=== PATIENT | female | born 1995 | race Caucasian/White ===

== ENCOUNTER 2018-03-05 07:43 | Day surgery (SDC) | payer OTHER, SELFPAY ==
[2018-02-24 15:43] VITALS: BMI 32.9
[2018-03-05] VITALS (7 sets, daily range): BP systolic 101–138; BP diastolic 63–86; PULSE 78–90; RESP 11–16; TEMP 36–36.5; O2SAT 93–96; BMI 32.9
--- NOTE | 2018-03-05 07:24 | PM.PREOP ---
Pre-operative Note Interval Note Pre-op Check: History & Physical Reviewed by Physician
[2018-03-05] MEDS: LACTATED RINGERS 1,000 ML 42 ML IV ×2 (08:41→10:57)
[2018-03-05] MEDS: SCOPOLAMINE 1 PATCH TOP (08:42)
--- NOTE | 2018-03-05 08:45 | SUR.PREOP ---
scope patch behind r ear. Negative test, lot #[id number] exp , start 808 end 811.
[2018-03-05] MEDS: CEFAZOLIN 2 GM/100 ML FROZ.PIGGY IV (09:07)
--- NOTE | 2018-03-05 09:41 | SUR.OPER ---
Lateral on padded OR bed, head on pillow, gel axillary roll in place, right leg bent with gel pad under knee to foot and secured with tape, left leg draped free. Upper arm supported by pillows and secured over bottom arm to padded arm board. Safety belt at hip, tape over blanket lower legs. Right lateral
[2018-03-05] MEDS: BUPIVACAINE 0.25% (PF) 30 ML VIAL INJ (10:24)
[2018-03-05] MEDS: fentaNYL 100 MCG/2 ML INJ 50 MCG IV (10:50)
--- NOTE | 2018-03-05 11:03 | P.OP_ITS ---
Operative Date/Time/Diagnoses - Date of procedure: 03/05/18 Time of procedure: 09:18 Pre-op diagnosis: Left ankle instability Post-op diagnosis: same Procedure & Clinicians Procedure: Left ankle open lateral ligament repair, Brostrom Same procedure as scheduled: Yes Indications: This is a 22-year-old female with long-standing left ankle instability. She has instability in her daily activities and difficulty getting dressed in the morning and walking on uneven surfaces. She has mild pain associated with this. There was a abnormal anterolateral drawer test. MRI did not show any talar osteochondral lesions. She did not have any signs of hyperlaxity. The risks, benefits, alternatives to surgery were discussed. The risks of surgery are pain, bleeding, infection, recurrent instability, damage to nearby structures, numbness, neuroma, and lack of symptom relief. The goals of surgery are to stabilize the ankle to allow her to do normal daily activities and her desired sports. She signed a written consent form. Surgeon: Tj Velasquez Click Yes if Unassisted: Yes Anesthesia Type: General and Local Operative Notes Findings: Examination under anesthesia showed increased laxity to talar tilt and anterior drawer test of the ankle. Range of motion was 15? of dorsiflexion to 60? of plantar flexion. Subtalar motion is supple. Intraoperative findings showed adequate ATFL and CFL tissue for repair. There are no talar dome lesions. Closure Type: primary Specimen(s): none sent Implants & Drains: 1.8 mm suture tack by Arthrex x2 Estimated Blood Loss (mL): 5 Blood products transfused: none Tourniquet time (min): 46 Procedure in detail: Patient was met in the preoperative hold area on the day of the procedure in the operative extremity was signed. Consent was verified. She desired to proceed. She was brought to the operating room and surrendered to anesthesia. Once general anesthesia been obtained she was placed in the lateral position with the left side up. An axillary roll was placed and all bony prominences were well padded. She was held with a jacob bag. She was then prepped and draped in the standard sterile fashion. A surgical time-out was held to confirm the patient procedure identity allergies antibiotics images already agreed to proceed. An Esmarch was used to exsanguinate the limb and the tourniquet was elevated to 250 mm of mercury. A 4 cm incision was made over the lateral malleolus extending towards the 4th metatarsal. Sharp dissection was carried down to the retinaculum electrocautery was used to obtain hemostasis. Full-thickness flaps were created at the level of the retinaculum anteriorly and posteriorly. We land was used for retraction. I palpated the soft spot between the ATFL and the ATFL and made a small full-thickness capsular incision 2 mm off of the fibula. I then placed a curved hemostat into the joint and continued the capsulotomy around down to the peroneal tendons being careful to protect them. No talar dome lesions were seen. A rongeur was used to remove hypertrophied Nicolaus's ligament. Once satisfied with this I used a Elder rake to pull on the cuff of tissue attached to the fibula and sharply dissected off 4 mm up. I then used a rongeur to denude the anterior lateral and the distal portions of the fibula where the tissue was going to be reduced. I then drilled and placed a suture tack at the ATFL insertion on the fibula and at the CFL insertion. I then passed 2 limbs of the anterior suture through the remnant the ATFL and capsular tissues reduced them onto the fibula nicely. I repeated this in the anterior border of the of the CFL ensuring to not capture the peroneal tendons. I then irrigated the joint copiously. I then moved the bump to the forefoot which kimberlee the ankle and tied the capsular tissue down to the bone. It was found to reduce nicely and be firmly fixed. I then placed the sutures up through the remnant tissue on the fibula and then back down through it around the retinaculum and reduced the retinaculum to the fibula and tied tightly. Satisfied with this stability obtained performed an anterior drawer and talar tilt and found to be stable. Range of motion of the ankle remained normal. I then cut the sutures. Layered closure was performed with 2 0 Vicryl in the fascial layer. 120 Vicryl in the dermis. And vertical mattress nylon stitches. 10 cc of 0.25% Marcaine plain were instilled about the wound. A sterile dressing was applied and a splint was placed with the ankle everted. She was awakened and transferred to recovery room. Complications: none Condition: stable Disposition: same day surgery Plan for aftercare: Splint on for 2 weeks. Transition to a cast for 2 additional weeks. Transition to Cam walker boot with weight-bearing as tolerated after that point. Advance activities after the 6 week visit.
[2018-03-05] MEDS: OXYCODONE/ACETAMINOPHEN 5/325 TABLET 1 TAB PO (11:06)
== END 2018-03-05 11:30 | disposition home or self-care (01) ==
PROVIDERS: Family Provider Family Medicine; PCP Family Medicine; Visit Provider Orthopaedic Surgery
PROC: (CPT 27698; principal; 2018-03-05 09:15)
DX: M25.372 Other instability, left ankle (principal)
CPT/HCPCS: 27698; J0690; J1100; J2405; J2704; J3010

== ENCOUNTER 2018-04-09 23:43 | Emergency (ER) | payer OTHER, SELFPAY ==
[2018-04-10 00:08] VITALS: BP 129/83; PULSE 80; RESP 17; TEMP 36.3; O2SAT 100; BMI 33.2
--- NOTE | 2018-04-10 02:01 | DI.US.S_ITS ---
PROCEDURE: US PELVIC COMPLETE INDICATIONS: severe RLQ pain, hx ovarian cyst/endometriosis/vaginal disch TECHNIQUE: Real-time scanning was performed of the pelvic organs, with image documentation. Additional endovaginal scanning was necessary due to incomplete visualization of the adnexal and endometrial structures by transabdominal scanning. COMPARISON: [facility], , PELVIC COMPLETE, 10/14/2016, 2:45. FINDINGS: Preliminary report by material handler 2nd shift radiology Transabdominal scanning: Limited scanning through the kidneys shows no hydronephrosis. The kidneys measure 11.6 CM right and 11.5 CM left. Small amount of free fluid around the root right ovary and in the cul-de-sac. Endovaginal scanning: Uterus: Uterus is normal in size at 3.2 x 4.2 x 4.6 cm. The endometrium measures 7 mm in combined thickness. Ovaries: The right ovary measures 35 x 36 x 36 mm and shows normal blood flow with resistive index of 0.69. There is a complex echogenic cyst in the right ovary measuring 15 x 14 x 14 mm, probable hemorrhagic cyst. The left ovary appears normal measuring 22 x 27 x 31 mm. Bilateral ovarian follicular activity. IMPRESSION: 1. Normal uterus and left ovary. 2. Small 1.4 cm hemorrhagic cyst right ovary. No evidence of ovarian torsion. Findings are concordant with the preliminary report. Dictated by: Melvin Veloz M.D. on 04/10/2018 at 7:53 Approved by: Melvin Veloz M.D. on 04/10/2018 at 7:57
[2018-04-10] MEDS: ONDANSETRON 4 MG/2 ML INJ IV (02:36)
[2018-04-10] MEDS: HYDROMORPHONE 1 MG INJ IV (02:36)
[2018-04-10] MEDS: SODIUM CHLORIDE 0.9% 1,000 ML 1000 ML IV (02:36)
--- NOTE | 2018-04-10 02:39 | ED_ITS ---
HPI - Female Genitourinary General Chief complaint: Urogenital-Female Stated complaint: SHARP PAIN SHOOTING DOWN LEGS,NAUSEA AND VOMITING Time Seen by Provider: 04/10/18 00:00 Source: patient and family Mode of arrival: ambulatory Limitations: no limitations History of Present Illness HPI Narrative: 23-year-old female with longstanding history of ovarian trouble and endometriosis presents the most severe pelvic pain she has ever had in her right lower quadrant. She admits to nausea vomiting and subjective fever. She denies vaginal bleeding but has had some discharge. She states it is worse when she moves and improves with rest. She was seen and evaluated yesterday at a neighboring facility and was discharged after a thorough history and physical exam. No labs or imaging were performed. Patient is sexually active and states that she is careful. MD Complaint: pelvic pain Onset (ago): day(s) Location: suprapubic and RLQ Severity: severe Quality: Aching and Burning Duration: constant Exacerbating factors: movement Patient : No Associated symptoms: vaginal discharge Related Data Home Medications Medication Instructions Recorded Confirmed meloxicam [Mobic] 7.5 mg PO AMCC #0 10/15/16 03/05/18 [BCP] 1 tab PO Q DAY #0 10/23/16 aspirin 325 mg PO DAILY 02/24/18 02/24/18 [id number] 2 tab PO Q4-6H PRN 03/05/18 03/05/18 [Excedrin Extra Strength] Previous Rx's Medication Instructions Recorded ondansetron [Zofran ODT] 4 mg SUBLINGUAL Q6HP PRN #10 odt 08/07/16 ibuprofen 600 mg PO Q6HP PRN #60 tab 10/24/16 oxycodone-acetaminophen [Percocet] 1 tab PO Q4HP PRN #15 tab 10/24/16 ketorolac 10 mg PO Q6H PRN #14 tab 04/10/18 Allergies Allergy/AdvReac Type Severity Reaction Status Date / Time latex [LATEX] Allergy Mild RASH, Verified 03/05/18 08:07 ITCHING Review of Systems Review of Systems All systems reviewed & are unremarkable except as noted in HPI and below Constitutional Denies chills, Denies fever(s), Denies lethargy and Denies weakness Eyes Denies change in vision, Denies eye discharge, Denies irritation and Denies loss of vision ENT Ears, Nose, Mouth, and Throat: Denies change in voice, Denies neck pain and Denies sore throat Cardiovascular Denies chest pain, Denies irregular heart rhythm, Denies lightheadedness, Denies palpitations, Denies dyspnea, Denies dyspnea on exertion and Denies orthopnea Respiratory Denies cough, Denies dyspnea, Denies dyspnea on exertion and Denies wheezing Gastrointestinal Gastrointestinal: Reports abdominal pain, Denies change in bowel habits, Denies diarrhea, Reports nausea and Reports vomiting Genitourinary Denies hematuria, Reports pelvic pain, Denies flank pain, Denies urinary incontinence and Denies urinary urgency Musculoskeletal Denies neck pain Integumentary/Breasts Denies pruritus, Denies erythema, Denies rash and Denies wounds Neurologic Denies confusion, Denies loss of vision and Denies weakness Psychiatric Denies anxiety, Denies confusion, Denies depression, Denies homicidal ideation and Denies suicidal ideation Endocrine Denies palpitations Hematologic/Lymphatic Denies easy bruising Allergic/Immunologic Denies wheezing PFSH Medical History Ankle pain (Acute) Anxiety (Acute) Constipation (Acute) Depression (Acute) Deviated septum (Acute) History of headache (Acute) Knee pain (Acute) Left ankle instability (Acute) Surgical History H/O laparoscopy (Acute) History of mandibular surgery (Acute) History of ovarian cystectomy (Acute) S/P left knee arthroscopy (Acute) S/P right knee arthroscopy (Acute) Social History household members: spouse Smoking Status: Current every day smoker alcohol intake: current Exam Initial Vital Signs Initial Vital Signs: Vital Signs Temperature 97.4 F L 04/10/18 00:08 Pulse Rate 80 04/10/18 00:08 Respiratory Rate 17 04/10/18 00:08 Blood Pressure 129/83 H 04/10/18 00:08 Pulse Oximetry 100 04/10/18 00:08 Const General: cooperative and well developed Nutritional Appearance: well nourished Orientation: alert, awake, oriented x3 and not confused [facility] Head: normocephalic and atraumatic Ears: external ears normal and TM's normal bilaterally Nose: external nose normal and No nasal discharge Face and sinus: sinuses nontender, face symmetric, no sinus tenderness and No dry mucous membranes Mouth: oral mucosae normal and moist mucous membranes Teeth and gingiva: dentition normal Throat: tonsils normal and uvula midline Eyes General: appearance normal, both eyes and all related structures Eyelids: eyelids normal Conjunctivae: conjunctivae normal Sclera: sclerae normal Pupils: PERRL EOM: EOM intact bilaterally Neck Neck: normal visual inspection, trachea midline, No lymphadenopathy, No midline deformity and No JVD Lymphatic: No lymphedema Chest Chest: normal inspection of the chest Resp Effort & Inspection: normal respiratory effort, able to speak in complete sentences, no respiratory distress and no use of accessory muscles Auscultation: clear to auscultation bilaterally, no rales, no rhonchi and no wheezes Cardio Rate: regular rate Rhythm: regular rhythm Heart Sounds: no click, no gallops, no murmurs and no rubs Pulses: normal peripheral pulses GI Inspection: non-distended Palpation: soft, no hepatosplenomegaly, No guarding, No pulsatile mass and tender (Right lower quadrant) Auscultation: normal bowel sounds Back/Spine/Pelvis Back: No CVA tenderness Cervical Spine: cervical ROM normal and No pain with cervical ROM Thoracic/Lumbar Spine: thoracic and lumbar spine normal to inspection Skin General: no rashes or lesions noted, No jaundice and No petechiae Neuro General: alert, oriented x3, gait normal and no focal motor deficits Speech: speech normal Extrem General: full ROM, no clubbing, cyanosis or edema, no pedal edema and no calf tenderness Psych Appearance: well kempt Mental Status: mental status grossly normal Attitude: cooperative Thought Content: normal and suicidality Judgment: judgment good Course Orders Ordered: ED Orders 04/10/18 02:01 pelvic complete Stat Urine Chlamydia Gonorrhea PCR Stat 04/10/18 02:14 Complete Blood Count AUTO DIFF Stat Comprehensive Metabolic Panel Stat Ondansetron HCl (Zofran) 4 mg IV Q2HR PRN PRN Reason: Nausea And Vomiting Last Admin: 04/10/18 02:36 Dose: 4 mg Discontinued Medications Hydromorphone HCl (Dilaudid) 1 mg IV NOW ONE Stop: 04/10/18 02:02 Last Admin: 04/10/18 02:36 Dose: 1 mg Sodium Chloride (Normal Saline 0.9%) 1,000 mls @ 1,000 mls/hr IV BOLUS ONE Stop: 04/10/18 03:00 Last Admin: 04/10/18 02:36 Dose: 1,000 mls/hr Vital Signs - 8 hr 04/10/18 00:08 Temperature 97.4 F L Pulse Rate 80 Respiratory Rate 17 Blood Pressure 129/83 H Pulse Oximetry 100 MDM - Female Genitourinary Lab Data Result diagrams: 04/10/18 02:14 04/10/18 02:14 Lab Results 04/10/18 04/10/18 Range/Units 02:14 02:14 WBC 9.4 (4.5-11.0) X10^3/uL RBC 4.66 (4.0-5.2) X10^6/uL Hgb 13.6 (12.0-16.0) g/dL Hct 39.3 (36-46) % MCV 84.4 (80-100) fL MCH 29.1 (26-34) PG MCHC 34.5 (30-36) % RDW 12.8 (11.6-14.8) % Plt Count 322 (150-400) X10^3/uL Neut % (Auto) 48.1 L (50-75) % Lymph % (Auto) 43.6 H (25-40) % Hudspeth % (Auto) 6.1 (3-14) % Eos % (Auto) 1.7 L (2-4) % Baso % (Auto) 0.5 (0-2) % Neut # (Auto) 4500 (4306-3793) /uL Sodium 141 (137-145) mmol/L Potassium 3.6 (3.4-5.1) mmol/L Chloride 103 (98-107) mmol/L Carbon Dioxide 28 (22-32) mmol/L BUN 22 H (7-17) mg/dL Creatinine 1.00 (0.52-1.04) mg/dL Estimated GFR > 60.0 (>60) mL/min BUN/Creatinine Ratio 22.0 (6-22) Glucose 89 (70-100) mg/dL Calcium 9.7 (8.4-10.2) mg/dL Total Bilirubin 0.2 (0.2-1.3) mg/dL AST 26 (14-36) IU/L ALT 35 (9-52) IU/L Alkaline Phosphatase 69 (38-126) U/L Total Protein 7.0 (6.3-8.2) g/dL Albumin 4.4 (3.5-5.0) g/dL Globulin 2.6 (1.7-4.1) g/dL Albumin/Globulin Ratio 1.7 (1.0-2.8) Discharge Plan Departure Patient Disposition: Home, Self-Care Clinical Impression: Hemorrhagic cyst of right ovary Instructions: DI for Ovarian Cyst Activity Restrictions/Additional Instructions: *You have been diagnosed with [ hemorrhagic cyst of the right ovary ] *What to do: *Take medications as directed * follow up with Dr. Hand (OB Gyne, at [facility]. Call for appointment and let them know your in the emergency department and we have asked used to follow up with them *Return to ER if you should have any new, worsening or concerning symptoms , such as [increasing pain, fever greater than 101 F, persistent nausea and vomiting, other concerning symptoms ] Prescriptions: New ketorolac 10 mg tablet 10 mg PO Q6H PRN (Reason: pain) Qty: 14 RF: 0 No Action ondansetron [Zofran ODT] 4 MG tablet,disintegrating 4 mg Sublingual Q6HP PRNQty: 10 RF: 0 meloxicam [Mobic] 7.5 MG tablet 7.5 mg PO AMCC Qty: 0 RF: 0 [BCP] 1 tab PO Q DAY Qty: 0 RF: 0 oxycodone-acetaminophen [Percocet] 5 MG/325 MG tablet 1 tab PO Q4HP PRNQty: 15 RF: 0 ibuprofen 600 MG tablet 600 mg PO Q6HP PRNQty: 60 RF: 0 aspirin 325 mg Tablet 325 mg PO DAILY RF: 0 [id number] [Excedrin Extra Strength] 250-250-65 mg Tablet 2 tab PO Q4-6H PRN (Reason: Pain, Moderate) RF: 0 Referrals: Felipe Santana MD [Physician] - Zackery Keith MD [Primary Care Provider] -
[2018-04-10 02:42] LABS: Add Manual Diff / Slide Review NO; Basophils Percent Auto 0.5 % (0-2); Eosinophils Percent Auto 1.7 % (2-4); Hematocrit 39.3 % (36-46); Hemoglobin 13.6 g/dL (12.0-16.0); Lymphocytes Percent Auto 43.6 % (25-40); Mean Corpuscular HGB Conc 34.5 % (30-36); Mean Corpuscular Hemoglobin 29.1 PG (26-34); Mean Corpuscular Volume 84.4 fL (80-100); Monocytes Percent Auto 6.1 % (3-14); Neutrophils Absolute Auto 4500 /uL (3000-5900); Neutrophils Percent Auto 48.1 % (50-75); Platelet Count 322 X10^3/uL (150-400); Red Blood Cell Count 4.66 X10^6/uL (4.0-5.2); Red Cell Distribution Width 12.8 % (11.6-14.8); White Blood Cell Count 9.4 X10^3/uL (4.5-11.0)
[2018-04-10 02:46] LABS: Alanine Aminotransferase 35 IU/L (9-52); Albumin 4.4 g/dL (3.5-5.0); Albumin Globulin Ratio 1.7 (1.0-2.8); Alkaline Phosphatase 69 U/L (38-126); Aspartate Aminotransferase 26 IU/L (14-36); Bilirubin Total 0.2 mg/dL (0.2-1.3); Blood Urea Nitrogen 22 mg/dL (7-17); Calcium 9.7 mg/dL (8.4-10.2); Carbon Dioxide 28 mmol/L (22-32); Chloride 103 mmol/L (98-107); Estimated Glomerular Filt Rate > 60.0 mL/min (>60); Globulin 2.6 g/dL (1.7-4.1); Glucose 89 mg/dL (70-100); HEMOLYSIS < 15 (0-50); Potassium 3.6 mmol/L (3.4-5.1); Sodium 141 mmol/L (137-145)
[2018-04-10 03:55] VITALS: BP 114/81; PULSE 65; RESP 14; O2SAT 97
[2018-04-10 04:01] VITALS: BP 129/83; PULSE 80; RESP 17; TEMP 36.3; O2SAT 100; BMI 33.2
== END 2018-04-10 04:04 | disposition home or self-care (01) ==
PROVIDERS: Emergency Provider Emergency Medicine; Family Provider Family Medicine; PCP Family Medicine
DX: N83.201 Unspecified ovarian cyst, right side (principal)
CPT/HCPCS: 36591; 76830; 76856; 80053; 81003; 81025; 85025; 96361; 96374; 96375; 99282; 99284; J1170; J2405

== ENCOUNTER 2018-06-01 03:45 | Emergency (ER) | payer OTHER, SELFPAY ==
--- NOTE | 2018-06-01 04:02 | ED.ABDPAIN ---
HPI - Abdominal Pain General Chief Complaint: Abdominal Pain Stated Complaint: Fever, vomiting nausea abd pain Time Seen by Provider: 06/01/18 04:01 Source: patient Mode of arrival: ambulatory Limitations: no limitations History of Present Illness HPI narrative: Patient states she has been seen multiple times for the same; she has been seen numerous times at the emergency department in [facility], as well as in the clinic somewhat. Patient has had extensive workups which have occasionally showed ovarian cysts cysts but are usually negative. Patient states she feels as though a cyst has burst again. MD complaint: abdominal pain Onset (ago): day(s) (One-day) Pain Consistency: constant Location: suprapubic (Right left pelvis also) Severity: moderate Severity scale (1-10): 5 Quality: cramping and stabbing Radiation: none Migration to: no migration Relieving factors: nothing Exacerbating factors: eating Context: other (No known sick contacts; no foreign travel, recent antibiotic use or known source of food poisoning.) Associated symptoms: denies other symptoms (Patient is not known to be ) Treatments prior to arrival: other (None) Related Data Home Medications Medication Instructions Recorded Confirmed meloxicam [Mobic] 7.5 mg PO AMCC #0 10/15/16 03/05/18 [BCP] 1 tab PO Q DAY #0 10/23/16 aspirin 325 mg PO DAILY 02/24/18 02/24/18 [id number] 2 tab PO Q4-6H PRN 03/05/18 03/05/18 [Excedrin Extra Strength] Previous Rx's Medication Instructions Recorded ondansetron [Zofran ODT] 4 mg SUBLINGUAL Q6HP PRN #10 odt 08/07/16 ibuprofen 600 mg PO Q6HP PRN #60 tab 10/24/16 oxycodone-acetaminophen [Percocet] 1 tab PO Q4HP PRN #15 tab 10/24/16 ketorolac 10 mg PO Q6H PRN #14 tab 04/10/18 hydrocodone-acetaminophen [Vicodin] 1 tab PO Q6H PRN #2 tab 06/01/18 Allergies Allergy/AdvReac Type Severity Reaction Status Date / Time latex [LATEX] Allergy Mild RASH, Verified 03/05/18 08:07 ITCHING Review of Systems Review of Systems All systems reviewed & are unremarkable except as noted in HPI and below Constitutional Denies chills, Denies fever(s), Denies lethargy and Denies weakness Eyes Denies change in vision, Denies eye discharge, Denies irritation and Denies loss of vision ENT Ears, Nose, Mouth, and Throat: Denies change in voice, Denies neck pain and Denies sore throat Cardiovascular Denies chest pain, Denies irregular heart rhythm, Denies lightheadedness, Denies palpitations, Denies dyspnea, Denies dyspnea on exertion and Denies orthopnea Respiratory Denies cough, Denies dyspnea, Denies dyspnea on exertion and Denies wheezing Gastrointestinal Gastrointestinal: Reports abdominal pain, Denies change in bowel habits, Reports diarrhea, Reports nausea and Denies vomiting Genitourinary Denies hematuria, Denies flank pain, Denies urinary incontinence and Denies urinary urgency Musculoskeletal Denies neck pain Integumentary/Breasts Denies pruritus, Denies erythema, Denies rash and Denies wounds Neurologic Denies confusion, Denies loss of vision and Denies weakness Psychiatric Denies anxiety, Denies confusion, Denies depression, Denies homicidal ideation and Denies suicidal ideation Endocrine Denies palpitations Hematologic/Lymphatic Denies easy bruising Allergic/Immunologic Denies wheezing [facility] Medical History Ankle pain (Acute) Anxiety (Acute) Constipation (Acute) Depression (Acute) Deviated septum (Acute) History of headache (Acute) Knee pain (Acute) Left ankle instability (Acute) Surgical History H/O laparoscopy (Acute) History of mandibular surgery (Acute) History of ovarian cystectomy (Acute) S/P left knee arthroscopy (Acute) S/P right knee arthroscopy (Acute) Social History household members: spouse Smoking Status: Current every day smoker alcohol intake: current Exam Initial Vital Signs Initial Vital Signs: Vital Signs Temperature 98.6 F 06/01/18 04:14 Pulse Rate 69 06/01/18 04:14 Respiratory Rate 16 06/01/18 04:14 Blood Pressure 129/76 06/01/18 04:14 Pulse Oximetry 99 06/01/18 04:14 Const General: cooperative and well developed Nutritional Appearance: well nourished Orientation: alert, awake, oriented x3 and not confused [facility] Head: normocephalic and atraumatic Ears: external ears normal and TM's normal bilaterally Nose: external nose normal and No nasal discharge Face and sinus: sinuses nontender, face symmetric, no sinus tenderness and No dry mucous membranes Mouth: oral mucosae normal and moist mucous membranes Teeth and gingiva: dentition normal Throat: tonsils normal and uvula midline Eyes General: appearance normal, both eyes and all related structures Eyelids: eyelids normal Conjunctivae: conjunctivae normal Sclera: sclerae normal Pupils: PERRL EOM: EOM intact bilaterally Neck Neck: normal visual inspection, trachea midline, No lymphadenopathy, No midline deformity and No JVD Lymphatic: No lymphedema Chest Chest: normal inspection of the chest Resp Effort & Inspection: normal respiratory effort, able to speak in complete sentences, no respiratory distress and no use of accessory muscles Auscultation: clear to auscultation bilaterally, no rales, no rhonchi and no wheezes Cardio Rate: regular rate Rhythm: regular rhythm Heart Sounds: no click, no gallops, no murmurs and no rubs Pulses: normal peripheral pulses GI Inspection: non-distended Palpation: soft, no hepatosplenomegaly, No guarding, No pulsatile mass and tender (Moderate, right pelvic area.) Back/Spine/Pelvis Back: No CVA tenderness Cervical Spine: cervical ROM normal and No pain with cervical ROM Thoracic/Lumbar Spine: thoracic and lumbar spine normal to inspection Skin General: no rashes or lesions noted, No jaundice and No petechiae Neuro General: alert, oriented x3, gait normal and no focal motor deficits Speech: speech normal Extrem General: full ROM, no clubbing, cyanosis or edema, no pedal edema and no calf tenderness Psych Appearance: well kempt Mental Status: mental status grossly normal Attitude: cooperative Thought Content: normal and suicidality Judgment: judgment good Course Course Narrative: Patient was treated symptomatically, and worked up with laboratory studies, which were unremarkable. She would have these symptoms many times before, and I did not feel that CT was indicated. I did get an ultrasound which was completely negative. Patient has been advised of this. She was found to be feeling better after symptomatic treatment, and I felt she was stable for discharge home. We have discussed the need for gynecology follow-up for the patient rather than coming to the emergency department repeatedly. Orders Ordered: Discontinued Medications Ketorolac Tromethamine (Toradol) 30 mg IV NOW ONE Stop: 06/01/18 04:24 Last Admin: 06/01/18 04:53 Dose: 30 mg Morphine Sulfate (Morphine) 2 mg IV NOW ONE Stop: 06/01/18 05:51 Last Admin: 06/01/18 05:55 Dose: 2 mg Ondansetron HCl (Zofran) 4 mg IV NOW ONE Stop: 06/01/18 04:24 Last Admin: 06/01/18 04:53 Dose: 4 mg MDM - Abdominal Pain Medical Records Attestation: I reviewed the patient's medical records. Lab Data Attestation: I reviewed the patient's lab results. Result diagrams: 06/01/18 04:50 Lab Results 06/01/18 06/01/18 Range/Units 04:00 04:50 WBC 8.1 (4.5-11.0) X10^3/uL RBC 4.86 (4.0-5.2) X10^6/uL Hgb 14.1 (12.0-16.0) g/dL Hct 41.8 (36-46) % MCV 85.9 (80-100) fL MCH 29.0 (26-34) PG MCHC 33.7 (30-36) % RDW 12.9 (11.6-14.8) % Plt Count 344 (150-400) X10^3/uL Neut % (Auto) 35.1 L (50-75) % Lymph % (Auto) 48.6 H (25-40) % [place] % (Auto) 6.3 (3-14) % Eos % (Auto) 9.0 H (2-4) % Baso % (Auto) 1.0 (0-2) % Neut # (Auto) 2800 L (6492-9753) /uL Urine Color Cancelled Urine Appearance Cancelled Urine pH Cancelled Ur Specific [place] Cancelled Urine Protein Cancelled Urine Glucose (UA) Cancelled Urine Ketones Cancelled Urine Occult Blood Cancelled Urine Nitrate Cancelled Urine Bilirubin Cancelled Urine Urobilinogen Cancelled Ur Leukocyte Esterase Cancelled Urine RBC None seen (0-5/HPF) Urine WBC 1-5/hpf (0-5/HPF) Urine Bacteria Moderate (10-30) H (None) Ur Culture Indicated? Specimen cultured Micro UA Comment Not Reportable Point of care testing: Point of Care Testing Test Results Negative Urine Dip Bedside Urine Glucose Negative Bedside Urine Bilirubin - Negative Bedside Urine Ketone - Negative Urine Specific [place] 1.030 Bedside Urine Occult Blood - Negative Bedside Urine pH 6 Bedside Urine Protein +/- 15 Bedside Urine Urobilinogen - Negative Bedside Urine Nitrite - Negative Bedside Urine Leukocytes - Negative Esterase Imaging Data Pelvic ultrasound: Radiologist's impression: PROCEDURE: US PELVIC COMPLETE INDICATIONS: Right pelvic pain TECHNIQUE: Real-time scanning was performed of the pelvic organs, with image documentation. Additional endovaginal scanning was necessary due to incomplete visualization of the adnexal and endometrial structures by transabdominal scanning. COMPARISON: [facility], CT, ABDOMEN/PELVIS WITH CONTRAST, 10/15/2016, 12:01. [facility], US, PELVIC COMPLETE, 10/14/2016, 2:45. [facility], US, US PELVIC COMPLETE, 04/10/2018, 2:52. FINDINGS: Transabdominal scanning: Limited scanning through the kidneys shows no hydronephrosis. No pathologic free abdominal or pelvic fluid. Endovaginal scanning: Uterus: Uterus is normal in size at 6.6 x 3.1 x 5.2 cm. The endometrium measures 3 mm in combined thickness. Ovaries: Right ovary measures 3.0 x 2.6 x 3.7 cm. Left ovary measures 2.4 x 1.4 x 2.4 cm. Small hemorrhagic cyst seen on the last ultrasound dated 04/10/18 isn't longer visualized. There is positive atrial flow in the right ovary on the ultrasound. IMPRESSION: 1. No ultrasound findings to explain right pelvic pain. 2. Note: Early heterotopic is not excluded based on this ultrasound. Recommend clinical correlation. Discharge Plan Departure Patient Disposition: Home Clinical Impression: Pelvic pain Discharge Date/Time: 06/01/18 07:43 Interventions: ED Discharge Assessment Last Done: 06/01/18 07:41 Instructions: DI for Abdominal Pain-Adult Activity Restrictions/Additional Instructions: Your labs and ultrasound looked good. The structures in your abdomen and pelvis do not show any abnormalities. Your white blood cell count is normal, indicating no infection. There is no evidence of an emergent condition causing your flare-up of pain. Given the ongoing abdominal pain that you have been having for some time, it is very important that you follow up with the screen cleaner specialist to determine how further to proceed, as well as to determine a plan for your home pain management. Prescriptions: New hydrocodone-acetaminophen [Vicodin] 5-300 mg tablet 1 tab PO Q6H PRN (Reason: pain) Qty: 2 RF: 0 No Action ondansetron [Zofran ODT] 4 MG tablet,disintegrating 4 mg Sublingual Q6HP PRNQty: 10 RF: 0 meloxicam [Mobic] 7.5 MG tablet 7.5 mg PO AMCC Qty: 0 RF: 0 [BCP] 1 tab PO Q DAY Qty: 0 RF: 0 oxycodone-acetaminophen [Percocet] 5 MG/325 MG tablet 1 tab PO Q4HP PRNQty: 15 RF: 0 ibuprofen 600 MG tablet 600 mg PO Q6HP PRNQty: 60 RF: 0 aspirin 325 mg Tablet 325 mg PO DAILY RF: 0 [id number] [Excedrin Extra Strength] 250-250-65 mg Tablet 2 tab PO Q4-6H PRN (Reason: Pain, Moderate) RF: 0 ketorolac 10 mg tablet 10 mg PO Q6H PRN (Reason: pain) Qty: 14 RF: 0 Referrals: Felipe Santana MD [Physician] - (Please follow up with Gynecology as soon as possible to discuss further management of your chronic pain.)
[2018-06-01 04:14] VITALS: BP 129/76; PULSE 69; RESP 16; TEMP 37; O2SAT 99; BMI 32.5
[2018-06-01 04:34] LABS: RBC Urine None Seen (0-5/HPF)
[2018-06-01 04:48] LABS: Bacteria Urine Moderate (10-30); Culture Indicated Urine Specimen Cultured; WBC Urine 1-5/HPF (0-5/HPF)
[2018-06-01] MEDS: KETOROLAC 60 MG/2 ML VIAL 30 MG IV (04:53)
[2018-06-01] MEDS: ONDANSETRON 4 MG/2 ML INJ IV (04:53)
[2018-06-01 04:59] LABS: Add Manual Diff / Slide Review NO; Hematocrit 41.8 % (36-46); Hemoglobin 14.1 g/dL (12.0-16.0); Lymphocytes Percent Auto 48.6 % (25-40); Mean Corpuscular HGB Conc 33.7 % (30-36); Mean Corpuscular Volume 85.9 fL (80-100); Monocytes Percent Auto 6.3 % (3-14); Neutrophils Absolute Auto 2800 /uL (3000-5900); Neutrophils Percent Auto 35.1 % (50-75); Platelet Count 344 X10^3/uL (150-400); Red Blood Cell Count 4.86 X10^6/uL (4.0-5.2); Red Cell Distribution Width 12.9 % (11.6-14.8); White Blood Cell Count 8.1 X10^3/uL (4.5-11.0)
[2018-06-01] MEDS: MORPHINE 2 MG/ML INJ IV (05:55)
--- NOTE | 2018-06-01 06:02 | DI.US.S_ITS ---
PROCEDURE: US PELVIC COMPLETE INDICATIONS: Right pelvic pain TECHNIQUE: Real-time scanning was performed of the pelvic organs, with image documentation. Additional endovaginal scanning was necessary due to incomplete visualization of the adnexal and endometrial structures by transabdominal scanning. COMPARISON: [facility], CT, ABDOMEN/PELVIS WITH CONTRAST, 10/15/2016, 12:01. [facility], US, PELVIC COMPLETE, 10/14/2016, 2:45. [facility], US, US PELVIC COMPLETE, 04/10/2018, 2:52. FINDINGS: Transabdominal scanning: Limited scanning through the kidneys shows no hydronephrosis. No pathologic free abdominal or pelvic fluid. Endovaginal scanning: Uterus: Uterus is normal in size at 6.6 x 3.1 x 5.2 cm. The endometrium measures 3 mm in combined thickness. Ovaries: Right ovary measures 3.0 x 2.6 x 3.7 cm. Left ovary measures 2.4 x 1.4 x 2.4 cm. Small hemorrhagic cyst seen on the last ultrasound dated 04/10/18 isn't longer visualized. There is positive atrial flow in the right ovary on the ultrasound. IMPRESSION: 1. No ultrasound findings to explain right pelvic pain. 2. Note: Early heterotopic is not excluded based on this ultrasound. Recommend clinical correlation. Dictated by: Mariya Jacobs M.D. on 06/01/2018 at 7:54 Approved by: Mariya Jacobs M.D. on 06/01/2018 at 7:59
[2018-06-01 07:41] VITALS: BP 119/82; PULSE 59; RESP 17; TEMP 37.2; O2SAT 99
== END 2018-06-01 07:43 | disposition home or self-care (01) ==
PROVIDERS: Emergency Provider Emergency Medicine; Family Provider Family Medicine; PCP Family Medicine
DX: R10.2 Pelvic and perineal pain (principal)
CPT/HCPCS: 36591; 76856; 81003; 81015; 81025; 85025; 87086; 96374; 96375; 99282; 99284; J1885; J2270; J2405

== ENCOUNTER 2018-12-01 11:13 | Emergency (ER) | payer OTHER, SELFPAY ==
[2018-12-01 11:15] VITALS: BP 133/91; PULSE 69; RESP 18; TEMP 36.6; O2SAT 99
--- NOTE | 2018-12-01 12:36 | ED.ABDPAIN ---
HPI - Abdominal Pain <Rachel Almonte PA-C - Last Filed: 12/01/18 21:56> General Chief Complaint: Abdominal Pain Stated Complaint: PELVIC PAIN,VOMITING Time Seen by Provider: 12/01/18 12:35 Source: patient Mode of arrival: ambulatory Limitations: no limitations History of Present Illness HPI narrative: This 23-year-old female was seen at another local ED last night due to pelvic pain and vomiting. She states that this has continued to worsen. She has had multiple episodes of vomiting including on the way here today several times. She states that the pain is localized in the pelvis, feels like ?Period Cramps x1 100. She states that she came here due to concern that only lab work was done yesterday but no further testing. She does have a history of ovarian cysts and endometriosis, but states that this pain is different than that. Usually her pain is dull achy pain, unilateral, cyst speak and then resolved. This pain has steadily worsened since it started 2 days ago. She states that she does not have any pain in her abdomen, just the nausea. She states that she has some chronic back pain which is unchanged. She has reflux esophagitis and occasionally vomits with that but this feels different to her. She denies any hematuria or urinary symptoms. She states that she has felt slightly constipated has had bowel movements for the last 2 days. No blood in the stools. She states she has felt a little clammy at times but not enough that she wanted to check her temperature, does not feel like she has a fever. She denies any chest pain or any other new symptoms on systems review. Related Data Home Medications Medication Instructions Recorded Confirmed meloxicam [Mobic] 7.5 mg PO AMCC #0 10/15/16 03/05/18 [BCP] 1 tab PO Q DAY #0 10/23/16 aspirin 325 mg PO DAILY 02/24/18 02/24/18 [id number] 2 tab PO Q4-6H PRN 03/05/18 03/05/18 [Excedrin Extra Strength] Previous Rx's Medication Instructions Recorded ondansetron [Zofran ODT] 4 mg SUBLINGUAL Q6HP PRN #10 odt 08/07/16 ibuprofen 600 mg PO Q6HP PRN #60 tab 10/24/16 oxycodone-acetaminophen [Percocet] 1 tab PO Q4HP PRN #15 tab 10/24/16 ketorolac 10 mg PO Q6H PRN #14 tab 04/10/18 hydrocodone-acetaminophen [Vicodin] 1 tab PO Q6H PRN #2 tab 06/01/18 Allergies Allergy/AdvReac Type Severity Reaction Status Date / Time latex [LATEX] Allergy Mild RASH, Verified 03/05/18 08:07 ITCHING tramadol AdvReac Severe Chest Pain Verified 12/01/18 11:24 oxycodone AdvReac Intermediate Verified 12/01/18 11:24 Review of Systems <Rachel Almonte PA-C - Last Filed: 12/01/18 21:56> Review of Systems ROS Unobtainable: All systems reviewed & are unremarkable except as noted in HPI and below PFSH <Rachel Almonte PA-C - Last Filed: 12/01/18 21:56> Medical History Ankle pain (Acute) Knee pain (Acute) Left ankle instability (Acute) Anxiety (Chronic) Constipation (Chronic) Depression (Chronic) Endometriosis (Chronic) History of headache (Chronic) PCOS (polycystic ovarian syndrome) (Chronic) Surgical History Deviated septum (Resolved) H/O laparoscopy (Resolved) History of mandibular surgery (Resolved) History of ovarian cystectomy (Resolved) S/P left knee arthroscopy (Resolved) S/P right knee arthroscopy (Resolved) Social History household members: spouse Smoking Status: Current every day smoker alcohol intake: current Social History household members: spouse Smoking Status: Current every day smoker alcohol intake: current Comment: States she is no longer smoking Exam <Rachel Almonte PA-C - Last Filed: 12/01/18 21:56> Narrative Exam Narrative: GENERAL APPEARANCE: Patient sitting comfortably, in no distress. HEENT: PERRL, EOMI, no scleral icterus NECK: Supple LUNGS: Clear to auscultation bilaterally. HEART: Rate and rhythm regular, normal S1 and S2, no S3 or S4. ABDOMEN: Soft, nondistended, bowel sounds present x 4 quadrants, no masses palpable, no hepatosplenomegaly. Moderate suprapubic tenderness without guarding or rebound : Normal external genitalia, there is a small amount of white discharge from the os, no lesions or inflammation, mild generalized pelvic tenderness without localized adnexal tenderness or CMT. Tender with speculum exam EXTREMITIES: No edema, no calf tenderness DERMATOLOGIC: No jaundice or exanthem NEUROLOGIC: Alert and oriented with normal speech, gait and coordination Initial Vital Signs Initial Vital Signs: Vital Signs Temperature 97.8 F 12/01/18 11:15 Pulse Rate 69 12/01/18 11:15 Respiratory Rate 18 12/01/18 11:15 Blood Pressure 133/91 H 12/01/18 11:15 Pulse Oximetry 99 12/01/18 11:15 <Emma Cooper DO - Last Filed: 12/04/18 20:50> Initial Vital Signs Initial Vital Signs: Vital Signs Temperature 97.8 F 12/01/18 11:15 Pulse Rate 69 12/01/18 11:15 Respiratory Rate 18 12/01/18 11:15 Blood Pressure 133/91 H 12/01/18 11:15 Pulse Oximetry 99 12/01/18 11:15 Course <Rachel Almonte PA-C - Last Filed: 12/01/18 21:56> Additional Information: Outside records were reviewed with essentially normal lab work. This was repeated today. Pelvic ultrasound was also done which did show ovarian cyst, endometrioma or hemorrhagic, likely the source of her symptoms. After Toradol and Zofran patient has been sleeping soundly during her stay. She reports feeling significantly improved prior to discharge. She will follow up with her OBGYN Orders Ordered: Discontinued Medications Sodium Chloride (Normal Saline 0.9%) 1,000 mls @ 1,000 mls/hr IV BOLUS ONE Stop: 12/01/18 13:53 Last Infusion: 12/01/18 14:45 Dose: 0 mls/hr Admin: 12/01/18 13:24 Dose: 1,000 mls/hr Ketorolac Tromethamine (Toradol) 30 mg IV NOW ONE Stop: 12/01/18 12:55 Last Admin: 12/01/18 13:25 Dose: 30 mg Prochlorperazine (Compazine) 10 mg IV NOW ONE Stop: 12/01/18 12:58 Last Admin: 12/01/18 13:24 Dose: 10 mg Vital Signs - 8 hr 03/12/19 14:48 Pulse Rate 65 Respiratory Rate 16 Blood Pressure [Right Arm] 141/72 H Pulse Oximetry 99 <Emma Cooper DO - Last Filed: 12/04/18 20:50> Orders Ordered: Discontinued Medications Sodium Chloride (Normal Saline 0.9%) 1,000 mls @ 1,000 mls/hr IV BOLUS ONE Stop: 12/01/18 13:53 Last Infusion: 12/01/18 14:45 Dose: 0 mls/hr Admin: 12/01/18 13:24 Dose: 1,000 mls/hr Ketorolac Tromethamine (Toradol) 30 mg IV NOW ONE Stop: 12/01/18 12:55 Last Admin: 12/01/18 13:25 Dose: 30 mg Prochlorperazine (Compazine) 10 mg IV NOW ONE Stop: 12/01/18 12:58 Last Admin: 12/01/18 13:24 Dose: 10 mg Vital Signs - 8 hr 12/01/18 14:48 Pulse Rate 65 Respiratory Rate 16 Blood Pressure [Right Arm] 141/72 H Pulse Oximetry 99 MDM - Abdominal Pain <Rachel Almonte PA-C - Last Filed: 12/01/18 21:56> Lab Data Attestation: I reviewed the patient's lab results. Result diagrams: 12/01/18 13:15 12/01/18 13:15 Lab Results 12/01/18 12/01/18 Range/Units 13:15 13:15 WBC 10.0 (4.5-11.0) X10^3/uL RBC 4.84 (4.0-5.2) X10^6/uL Hgb 13.9 (12.0-16.0) g/dL Hct 40.5 (36-46) % MCV 83.6 (80-100) fL MCH 28.8 (26-34) PG MCHC 34.4 (30-36) % RDW 12.6 (11.6-14.8) % Plt Count 320 (150-400) X10^3/uL Neut % (Auto) 54.8 (50-75) % Lymph % (Auto) 31.3 (25-40) % Weld % (Auto) 5.0 (3-14) % Eos % (Auto) 8.2 H (2-4) % Baso % (Auto) 0.7 (0-2) % Neut # (Auto) 5500 (4520-8315) /uL Lymph # (Auto) 3100 (8419-9604) /uL Weld # (Auto) 500 (0-900) /uL Eos # (Auto) 800 H (0-450) /uL Baso # (Auto) 100 (0-100) /uL Sodium 137 (137-145) mmol/L Potassium 3.9 (3.4-5.1) mmol/L Chloride 104 (98-107) mmol/L Carbon Dioxide 23 (22-32) mmol/L BUN 17 (7-17) mg/dL Creatinine 0.70 (0.52-1.04) mg/dL Estimated GFR > 60.0 (>60) mL/min BUN/Creatinine Ratio 24.3 H (6-22) Glucose 90 (70-100) mg/dL Calcium 9.3 (8.4-10.2) mg/dL Total Bilirubin 0.2 (0.2-1.3) mg/dL AST 31 (14-36) IU/L ALT 34 (9-52) IU/L Alkaline Phosphatase 73 (38-126) U/L Total Protein 7.4 (6.3-8.2) g/dL Albumin 4.4 (3.5-5.0) g/dL Globulin 3.0 (1.7-4.1) g/dL Albumin/Globulin Ratio 1.5 (1.0-2.8) Lipase 85 (23-300) U/L Point of care testing: Point of Care Testing Test Results Negative Urine Dip Bedside Urine Glucose Negative Bedside Urine Bilirubin - Negative Bedside Urine Ketone - Negative Urine Specific [place] 1.030 Bedside Urine Occult Blood - Negative Bedside Urine pH 6.0 Bedside Urine Protein - Negative Bedside Urine Urobilinogen - Negative Bedside Urine Nitrite - Negative Bedside Urine Leukocytes - Negative Esterase Imaging Data pelvic US: Radiologist's impression: [address] [address] Ultrasound Report Signed Patient: Kate Wright RMR#: [id number] : 1995Acct:[id number] Age/Sex: 23 / FDate of Service: 12/01/18 Loc: ED Accession Number: [id number] Procedure: US pelvic complete Ordering Provider: Rachel Almonte P.A-C PROCEDURE: US PELVIC COMPLETE INDICATIONS: PELVIC PAIN, HISTORY OF CYSTS AND ENDOMETRIOSIS TECHNIQUE: Real-time scanning was performed of the pelvic organs, with image documentation. Additional endovaginal scanning was necessary due to incomplete visualization of the adnexal and endometrial structures by transabdominal scanning. COMPARISON: [facility], , US PELVIC COMPLETE, 06/01/2018, 6:42. FINDINGS: Transabdominal scanning: Limited scanning through the kidneys shows no hydronephrosis. No pathologic free abdominal fluid. Physiologic amount of fluid is noted in posterior cul-de-sac. Endovaginal scanning: Uterus: Uterus is normal in size at 6.6 x 3.2 x 4.5 cm. The endometrium measures 7 mm in combined thickness. No discrete endometrial mass or fluid is seen. No discrete uterine fibroid is noted. Ovaries: Right ovary is surgically absent. Left ovary measures 3.9 x 2.4 x 2.1 cm in size. 2 x 1.5 x 1.6 cm rounded hypoechoic structure is noted in the left ovary. No internal vascularity is seen. IMPRESSION: 2 x 1.5 x 1.6 cm hypoechoic structure in left ovary, which may represent a hemorrhagic cyst versus endometrioma given patient history of endometriosis. Right ovary is surgically absent. No gross abnormality is seen the uterus and endometrium. Dictated by: Star Kamara M.D. on 12/01/2018 at 13:45 Approved by: Star Kamara M.D. on 12/01/2018 at 13:55 <Emma Cooper DO - Last Filed: 12/04/18 20:50> Lab Data Lab Results 12/01/18 12/01/18 Range/Units 13:15 13:15 WBC 10.0 (4.5-11.0) X10^3/uL RBC 4.84 (4.0-5.2) X10^6/uL Hgb 13.9 (12.0-16.0) g/dL Hct 40.5 (36-46) % MCV 83.6 (80-100) fL MCH 28.8 (26-34) PG MCHC 34.4 (30-36) % RDW 12.6 (11.6-14.8) % Plt Count 320 (150-400) X10^3/uL Neut % (Auto) 54.8 (50-75) % Lymph % (Auto) 31.3 (25-40) % Weld % (Auto) 5.0 (3-14) % Eos % (Auto) 8.2 H (2-4) % Baso % (Auto) 0.7 (0-2) % Neut # (Auto) 5500 (0012-2621) /uL Lymph # (Auto) 3100 (6541-1991) /uL Weld # (Auto) 500 (0-900) /uL Eos # (Auto) 800 H (0-450) /uL Baso # (Auto) 100 (0-100) /uL Sodium 137 (137-145) mmol/L Potassium 3.9 (3.4-5.1) mmol/L Chloride 104 (98-107) mmol/L Carbon Dioxide 23 (22-32) mmol/L BUN 17 (7-17) mg/dL Creatinine 0.70 (0.52-1.04) mg/dL Estimated GFR > 60.0 (>60) mL/min BUN/Creatinine Ratio 24.3 H (6-22) Glucose 90 (70-100) mg/dL Calcium 9.3 (8.4-10.2) mg/dL Total Bilirubin 0.2 (0.2-1.3) mg/dL AST 31 (14-36) IU/L ALT 34 (9-52) IU/L Alkaline Phosphatase 73 (38-126) U/L Total Protein 7.4 (6.3-8.2) g/dL Albumin 4.4 (3.5-5.0) g/dL Globulin 3.0 (1.7-4.1) g/dL Albumin/Globulin Ratio 1.5 (1.0-2.8) Lipase 85 (23-300) U/L Point of care testing: Point of Care Testing Test Results Negative Urine Dip Bedside Urine Glucose Negative Bedside Urine Bilirubin - Negative Bedside Urine Ketone - Negative Urine Specific [place] 1.030 Bedside Urine Occult Blood - Negative Bedside Urine pH 6.0 Bedside Urine Protein - Negative Bedside Urine Urobilinogen - Negative Bedside Urine Nitrite - Negative Bedside Urine Leukocytes - Negative Esterase Discharge Plan Departure Patient Disposition: Home Clinical Impression: Ovarian cyst Qualifiers: Laterality: unspecified laterality Qualified Code(s): N83.209 - Unspecified ovarian cyst, unspecified side Discharge Date/Time: 12/01/18 15:15 Interventions: ED Discharge Assessment Last Done: 12/01/18 15:14 Instructions: DI for Ovarian Cyst Activity Restrictions/Additional Instructions: You should return to the closest emergency department if you have acutely worsening symptoms again, i.e. uncontrolled vomiting, worsening pain, or new symptoms such as fever. Otherwise, since you are feeling better you can rest at home. Use your usual pain medicines. We did not have Phenergan here for you today, but Compazine seemed to work really well for you and this is also available in pill and suppository form in case you want to talk with your PCP or orthotic and prosthetic technician about a prescription. [place] to check your progress and determine whether and when you should have a repeat ultrasound, or whether further treatment will be needed. Prescriptions: No Action ondansetron [Zofran ODT] 4 MG tablet,disintegrating 4 mg Sublingual Q6HP PRNQty: 10 RF: 0 meloxicam [Mobic] 7.5 MG tablet 7.5 mg PO AMCC Qty: 0 RF: 0 [BCP] 1 tab PO Q DAY Qty: 0 RF: 0 oxycodone-acetaminophen [Percocet] 5 MG/325 MG tablet 1 tab PO Q4HP PRNQty: 15 RF: 0 ibuprofen 600 MG tablet 600 mg PO Q6HP PRNQty: 60 RF: 0 hydrocodone-acetaminophen [Vicodin] 5-300 mg tablet 1 tab PO Q6H PRN (Reason: pain) Qty: 2 RF: 0 aspirin 325 mg Tablet 325 mg PO DAILY RF: 0 [id number]-[id number] [Excedrin Extra Strength] 250-250-65 mg Tablet 2 tab PO Q4-6H PRN (Reason: Pain, Moderate) RF: 0 ketorolac 10 mg tablet 10 mg PO Q6H PRN (Reason: pain) Qty: 14 RF: 0 Referrals: Valentina Vergara MD [Non-Staff] - Zackery Keith MD [Primary Care Provider] - <Emma Cooper DO - Last Filed: 12/04/18 20:50> Cosign ED Attending Vandanaature Attestation: I was immediately available in the department for consultation. Documentation has been reviewed. I agree with assessment and plan.
[2018-12-01 12:48] VITALS: BP 128/78; PULSE 63; RESP 18; O2SAT 99
--- NOTE | 2018-12-01 12:54 | DI.US.S_ITS ---
PROCEDURE: US PELVIC COMPLETE INDICATIONS: PELVIC PAIN, HISTORY OF CYSTS AND ENDOMETRIOSIS TECHNIQUE: Real-time scanning was performed of the pelvic organs, with image documentation. Additional endovaginal scanning was necessary due to incomplete visualization of the adnexal and endometrial structures by transabdominal scanning. COMPARISON: [facility], US, US PELVIC COMPLETE, 06/01/2018, 6:42. FINDINGS: Transabdominal scanning: Limited scanning through the kidneys shows no hydronephrosis. No pathologic free abdominal fluid. Physiologic amount of fluid is noted in posterior cul-de-sac. Endovaginal scanning: Uterus: Uterus is normal in size at 6.6 x 3.2 x 4.5 cm. The endometrium measures 7 mm in combined thickness. No discrete endometrial mass or fluid is seen. No discrete uterine fibroid is noted. Ovaries: Right ovary is surgically absent. Left ovary measures 3.9 x 2.4 x 2.1 cm in size. 2 x 1.5 x 1.6 cm rounded hypoechoic structure is noted in the left ovary. No internal vascularity is seen. IMPRESSION: 2 x 1.5 x 1.6 cm hypoechoic structure in left ovary, which may represent a hemorrhagic cyst versus endometrioma given patient history of endometriosis. Right ovary is surgically absent. No gross abnormality is seen the uterus and endometrium. Dictated by: Star Kamara M.D. on 12/01/2018 at 13:45 Approved by: Star Kamara M.D. on 12/01/2018 at 13:55
--- NOTE | 2018-12-01 12:57 | PC.NURSE ---
Pelvic exam performed by Gage, wet mount swab sent.
--- NOTE | 2018-12-01 13:02 | ED_ITS ---
HPI - Abdominal Pain <Rachel Almonte PA-C - Last Filed: 12/01/18 21:56> General Chief Complaint: Abdominal Pain Stated Complaint: PELVIC PAIN,VOMITING Time Seen by Provider: 12/01/18 12:35 Source: patient Mode of arrival: ambulatory Limitations: no limitations History of Present Illness HPI narrative: This 23-year-old female was seen at another local ED last night due to pelvic pain and vomiting. She states that this has continued to worsen. She has had multiple episodes of vomiting including on the way here today several times. She states that the pain is localized in the pelvis, feels like ?Period Cramps x1 100. She states that she came here due to concern that only lab work was done yesterday but no further testing. She does have a history of ovarian cysts and endometriosis, but states that this pain is different than that. Usually her pain is dull achy pain, unilateral, cyst speak and then resolved. This pain has steadily worsened since it started 2 days ago. She states that she does not have any pain in her abdomen, just the nausea. She states that she has some chronic back pain which is unchanged. She has reflux esophagitis and occasionally vomits with that but this feels different to her. She denies any hematuria or urinary symptoms. She states that she has felt slightly constipated has had bowel movements for the last 2 days. No blood in the stools. She states she has felt a little clammy at times but not enough that she wanted to check her temperature, does not feel like she has a fever. She denies any chest pain or any other new symptoms on systems review. Related Data Home Medications Medication Instructions Recorded Confirmed meloxicam [Mobic] 7.5 mg PO AMCC #0 10/15/16 03/05/18 [BCP] 1 tab PO Q DAY #0 10/23/16 aspirin 325 mg PO DAILY 02/24/18 02/24/18 kfkyxld-mejranxrgvdpp-mfltyokr 2 tab PO Q4-6H PRN 03/05/18 03/05/18 [Excedrin Extra Strength] Previous Rx's Medication Instructions Recorded ondansetron [Zofran ODT] 4 mg SUBLINGUAL Q6HP PRN #10 odt 08/07/16 ibuprofen 600 mg PO Q6HP PRN #60 tab 10/24/16 oxycodone-acetaminophen [Percocet] 1 tab PO Q4HP PRN #15 tab 10/24/16 ketorolac 10 mg PO Q6H PRN #14 tab 04/10/18 hydrocodone-acetaminophen [Vicodin] 1 tab PO Q6H PRN #2 tab 06/01/18 Allergies Allergy/AdvReac Type Severity Reaction Status Date / Time latex [LATEX] Allergy Mild RASH, Verified 03/05/18 08:07 ITCHING tramadol AdvReac Severe Chest Pain Verified 12/01/18 11:24 oxycodone AdvReac Intermediate Verified 12/01/18 11:24 Review of Systems <Rachel Almonte PA-C - Last Filed: 12/01/18 21:56> Review of Systems ROS Unobtainable: All systems reviewed & are unremarkable except as noted in HPI and below PFSH <Rachel Almonte PA-C - Last Filed: 12/01/18 21:56> Medical History Ankle pain (Acute) Knee pain (Acute) Left ankle instability (Acute) Anxiety (Chronic) Constipation (Chronic) Depression (Chronic) Endometriosis (Chronic) History of headache (Chronic) PCOS (polycystic ovarian syndrome) (Chronic) Surgical History Deviated septum (Resolved) H/O laparoscopy (Resolved) History of mandibular surgery (Resolved) History of ovarian cystectomy (Resolved) S/P left knee arthroscopy (Resolved) S/P right knee arthroscopy (Resolved) Social History household members: spouse Smoking Status: Current every day smoker alcohol intake: current Social History household members: spouse Smoking Status: Current every day smoker alcohol intake: current Comment: States she is no longer smoking Exam <Rachel Almonte PA-C - Last Filed: 12/01/18 21:56> Narrative Exam Narrative: GENERAL APPEARANCE: Patient sitting comfortably, in no distress. HEENT: PERRL, EOMI, no scleral icterus NECK: Supple LUNGS: Clear to auscultation bilaterally. HEART: Rate and rhythm regular, normal S1 and S2, no S3 or S4. ABDOMEN: Soft, nondistended, bowel sounds present x 4 quadrants, no masses palpable, no hepatosplenomegaly. Moderate suprapubic tenderness without guarding or rebound : Normal external genitalia, there is a small amount of white discharge from the os, no lesions or inflammation, mild generalized pelvic tenderness without localized adnexal tenderness or CMT. Tender with speculum exam EXTREMITIES: No edema, no calf tenderness DERMATOLOGIC: No jaundice or exanthem NEUROLOGIC: Alert and oriented with normal speech, gait and coordination Initial Vital Signs Initial Vital Signs: Vital Signs Temperature 97.8 F 12/01/18 11:15 Pulse Rate 69 12/01/18 11:15 Respiratory Rate 18 12/01/18 11:15 Blood Pressure 133/91 H 12/01/18 11:15 Pulse Oximetry 99 12/01/18 11:15 <Emma Cooper DO - Last Filed: 12/04/18 20:50> Initial Vital Signs Initial Vital Signs: Vital Signs Temperature 97.8 F 12/01/18 11:15 Pulse Rate 69 12/01/18 11:15 Respiratory Rate 18 12/01/18 11:15 Blood Pressure 133/91 H 12/01/18 11:15 Pulse Oximetry 99 12/01/18 11:15 Course <Rachel Almonte PA-C - Last Filed: 12/01/18 21:56> Additional Information: Outside records were reviewed with essentially normal lab work. This was repeated today. Pelvic ultrasound was also done which did show ovarian cyst, endometrioma or hemorrhagic, likely the source of her symptoms. After Toradol and Zofran patient has been sleeping soundly during her stay. She reports feeling significantly improved prior to discharge. She will follow up with her OBGYN Orders Ordered: Discontinued Medications Sodium Chloride (Normal Saline 0.9%) 1,000 mls @ 1,000 mls/hr IV BOLUS ONE Stop: 12/01/18 13:53 Last Infusion: 12/01/18 14:45 Dose: 0 mls/hr Admin: 12/01/18 13:24 Dose: 1,000 mls/hr Ketorolac Tromethamine (Toradol) 30 mg IV NOW ONE Stop: 12/01/18 12:55 Last Admin: 12/01/18 13:25 Dose: 30 mg Prochlorperazine (Compazine) 10 mg IV NOW ONE Stop: 12/01/18 12:58 Last Admin: 12/01/18 13:24 Dose: 10 mg Vital Signs - 8 hr 03/12/19 14:48 Pulse Rate 65 Respiratory Rate 16 Blood Pressure [Right Arm] 141/72 H Pulse Oximetry 99 <Emma Cooper DO - Last Filed: 12/04/18 20:50> Orders Ordered: Discontinued Medications Sodium Chloride (Normal Saline 0.9%) 1,000 mls @ 1,000 mls/hr IV BOLUS ONE Stop: 12/01/18 13:53 Last Infusion: 12/01/18 14:45 Dose: 0 mls/hr Admin: 12/01/18 13:24 Dose: 1,000 mls/hr Ketorolac Tromethamine (Toradol) 30 mg IV NOW ONE Stop: 12/01/18 12:55 Last Admin: 12/01/18 13:25 Dose: 30 mg Prochlorperazine (Compazine) 10 mg IV NOW ONE Stop: 12/01/18 12:58 Last Admin: 12/01/18 13:24 Dose: 10 mg Vital Signs - 8 hr 12/01/18 14:48 Pulse Rate 65 Respiratory Rate 16 Blood Pressure [Right Arm] 141/72 H Pulse Oximetry 99 MDM - Abdominal Pain <Rachel Almonte PA-C - Last Filed: 12/01/18 21:56> Lab Data Attestation: I reviewed the patient's lab results. Result diagrams: 12/01/18 13:15 12/01/18 13:15 Lab Results 12/01/18 12/01/18 Range/Units 13:15 13:15 WBC 10.0 (4.5-11.0) X10^3/uL RBC 4.84 (4.0-5.2) X10^6/uL Hgb 13.9 (12.0-16.0) g/dL Hct 40.5 (36-46) % MCV 83.6 (80-100) fL MCH 28.8 (26-34) PG MCHC 34.4 (30-36) % RDW 12.6 (11.6-14.8) % Plt Count 320 (150-400) X10^3/uL Neut % (Auto) 54.8 (50-75) % Lymph % (Auto) 31.3 (25-40) % [place] % (Auto) 5.0 (3-14) % Eos % (Auto) 8.2 H (2-4) % Baso % (Auto) 0.7 (0-2) % Neut # (Auto) 5500 (8870-7525) /uL Lymph # (Auto) 3100 (0797-0491) /uL [place] # (Auto) 500 (0-900) /uL Eos # (Auto) 800 H (0-450) /uL Baso # (Auto) 100 (0-100) /uL Sodium 137 (137-145) mmol/L Potassium 3.9 (3.4-5.1) mmol/L Chloride 104 (98-107) mmol/L Carbon Dioxide 23 (22-32) mmol/L BUN 17 (7-17) mg/dL Creatinine 0.70 (0.52-1.04) mg/dL Estimated GFR > 60.0 (>60) mL/min BUN/Creatinine Ratio 24.3 H (6-22) Glucose 90 (70-100) mg/dL Calcium 9.3 (8.4-10.2) mg/dL Total Bilirubin 0.2 (0.2-1.3) mg/dL AST 31 (14-36) IU/L ALT 34 (9-52) IU/L Alkaline Phosphatase 73 (38-126) U/L Total Protein 7.4 (6.3-8.2) g/dL Albumin 4.4 (3.5-5.0) g/dL Globulin 3.0 (1.7-4.1) g/dL Albumin/Globulin Ratio 1.5 (1.0-2.8) Lipase 85 (23-300) U/L Point of care testing: Point of Care Testing Test Results Negative Urine Dip Bedside Urine Glucose Negative Bedside Urine Bilirubin - Negative Bedside Urine Ketone - Negative Urine Specific [place] 1.030 Bedside Urine Occult Blood - Negative Bedside Urine pH 6.0 Bedside Urine Protein - Negative Bedside Urine Urobilinogen - Negative Bedside Urine Nitrite - Negative Bedside Urine Leukocytes - Negative Esterase Imaging Data pelvic US: Radiologist's impression: [address] [address] Ultrasound Report Signed Patient: Kate Wright RMR#: [id number] : 1995Acct:[id number] Age/Sex: 23 / FDate of Service: 12/01/18 Loc: ED Accession Number: [id number] Procedure: US pelvic complete Ordering Provider: Rachel Almonte P.A-C PROCEDURE: US PELVIC COMPLETE INDICATIONS: PELVIC PAIN, HISTORY OF CYSTS AND ENDOMETRIOSIS TECHNIQUE: Real-time scanning was performed of the pelvic organs, with image documentation. Additional endovaginal scanning was necessary due to incomplete visualization of the adnexal and endometrial structures by transabdominal scanning. COMPARISON: [facility], , US PELVIC COMPLETE, 06/01/2018, 6:42. FINDINGS: Transabdominal scanning: Limited scanning through the kidneys shows no hydronephrosis. No pathologic free abdominal fluid. Physiologic amount of fluid is noted in posterior cul-de-sac. Endovaginal scanning: Uterus: Uterus is normal in size at 6.6 x 3.2 x 4.5 cm. The endometrium measures 7 mm in combined thickness. No discrete endometrial mass or fluid is seen. No discrete uterine fibroid is noted. Ovaries: Right ovary is surgically absent. Left ovary measures 3.9 x 2.4 x 2.1 cm in size. 2 x 1.5 x 1.6 cm rounded hypoechoic structure is noted in the left ovary. No internal vascularity is seen. IMPRESSION: 2 x 1.5 x 1.6 cm hypoechoic structure in left ovary, which may represent a hemorrhagic cyst versus endometrioma given patient history of endometriosis. Right ovary is surgically absent. No gross abnormality is seen the uterus and endometrium. Dictated by: Star Kamara M.D. on 12/01/2018 at 13:45 Approved by: Star Kamara M.D. on 12/01/2018 at 13:55 <Emma Cooper DO - Last Filed: 12/04/18 20:50> Lab Data Lab Results 12/01/18 12/01/18 Range/Units 13:15 13:15 WBC 10.0 (4.5-11.0) X10^3/uL RBC 4.84 (4.0-5.2) X10^6/uL Hgb 13.9 (12.0-16.0) g/dL Hct 40.5 (36-46) % MCV 83.6 (80-100) fL MCH 28.8 (26-34) PG MCHC 34.4 (30-36) % RDW 12.6 (11.6-14.8) % Plt Count 320 (150-400) X10^3/uL Neut % (Auto) 54.8 (50-75) % Lymph % (Auto) 31.3 (25-40) % [place] % (Auto) 5.0 (3-14) % Eos % (Auto) 8.2 H (2-4) % Baso % (Auto) 0.7 (0-2) % Neut # (Auto) 5500 (8166-6767) /uL Lymph # (Auto) 3100 (6879-4772) /uL [place] # (Auto) 500 (0-900) /uL Eos # (Auto) 800 H (0-450) /uL Baso # (Auto) 100 (0-100) /uL Sodium 137 (137-145) mmol/L Potassium 3.9 (3.4-5.1) mmol/L Chloride 104 (98-107) mmol/L Carbon Dioxide 23 (22-32) mmol/L BUN 17 (7-17) mg/dL Creatinine 0.70 (0.52-1.04) mg/dL Estimated GFR > 60.0 (>60) mL/min BUN/Creatinine Ratio 24.3 H (6-22) Glucose 90 (70-100) mg/dL Calcium 9.3 (8.4-10.2) mg/dL Total Bilirubin 0.2 (0.2-1.3) mg/dL AST 31 (14-36) IU/L ALT 34 (9-52) IU/L Alkaline Phosphatase 73 (38-126) U/L Total Protein 7.4 (6.3-8.2) g/dL Albumin 4.4 (3.5-5.0) g/dL Globulin 3.0 (1.7-4.1) g/dL Albumin/Globulin Ratio 1.5 (1.0-2.8) Lipase 85 (23-300) U/L Point of care testing: Point of Care Testing Test Results Negative Urine Dip Bedside Urine Glucose Negative Bedside Urine Bilirubin - Negative Bedside Urine Ketone - Negative Urine Specific [place] 1.030 Bedside Urine Occult Blood - Negative Bedside Urine pH 6.0 Bedside Urine Protein - Negative Bedside Urine Urobilinogen - Negative Bedside Urine Nitrite - Negative Bedside Urine Leukocytes - Negative Esterase Discharge Plan Departure Patient Disposition: Home Clinical Impression: Ovarian cyst Qualifiers: Laterality: unspecified laterality Qualified Code(s): N83.209 - Unspecified ovarian cyst, unspecified side Discharge Date/Time: 12/01/18 15:15 Interventions: ED Discharge Assessment Last Done: 12/01/18 15:14 Instructions: DI for Ovarian Cyst Activity Restrictions/Additional Instructions: You should return to the closest emergency department if you have acutely worsening symptoms again, i.e. uncontrolled vomiting, worsening pain, or new symptoms such as fever. Otherwise, since you are feeling better you can rest at home. Use your usual pain medicines. We did not have Phenergan here for you t saurav, but Compazine seemed to work really well for you and this is also available in pill and suppository form in case you want to talk with your PCP or practical nursing teacher about a prescription. [place] to check your progress and determine whether and when you should have a repeat ultrasound, or whether further treatment will be needed. Prescriptions: No Action ondansetron [Zofran ODT] 4 MG tablet,disintegrating 4 mg Sublingual Q6HP PRNQty: 10 RF: 0 meloxicam [Mobic] 7.5 MG tablet 7.5 mg PO AMCC Qty: 0 RF: 0 [BCP] 1 tab PO Q DAY Qty: 0 RF: 0 oxycodone-acetaminophen [Percocet] 5 MG/325 MG tablet 1 tab PO Q4HP PRNQty: 15 RF: 0 ibuprofen 600 MG tablet 600 mg PO Q6HP PRNQty: 60 RF: 0 hydrocodone-acetaminophen [Vicodin] 5-300 mg tablet 1 tab PO Q6H PRN (Reason: pain) Qty: 2 RF: 0 aspirin 325 mg Tablet 325 mg PO DAILY RF: 0 [id number]-vywdbxkqdpgwv-tunvjwcy [Excedrin Extra Strength] 250-250-65 mg Tablet 2 tab PO Q4-6H PRN (Reason: Pain, Moderate) RF: 0 ketorolac 10 mg tablet 10 mg PO Q6H PRN (Reason: pain) Qty: 14 RF: 0 Referrals: Valentina Vergara MD [Non-Staff] - Zackery Keith MD [Primary Care Provider] - <Emma Cooper DO - Last Filed: 12/04/18 20:50> Cosign ED Attending Vandanaature Attestation: I was immediately available in the department for consultation. Documentation has been reviewed. I agree with assessment and plan.
[2018-12-01 13:24] VITALS: BP 128/78; PULSE 63
[2018-12-01 13:24] LABS: Add Manual Diff / Slide Review NO; Basophils Absolute Auto 100 /uL (0-100); Basophils Percent Auto 0.7 % (0-2); Eosinophils Absolute Auto 800 /uL (0-450); Eosinophils Percent Auto 8.2 % (2-4); Hematocrit 40.5 % (36-46); Hemoglobin 13.9 g/dL (12.0-16.0); Lymphocytes Absolute Auto 3100 /uL (1100-4500); Lymphocytes Percent Auto 31.3 % (25-40); Mean Corpuscular HGB Conc 34.4 % (30-36); Mean Corpuscular Hemoglobin 28.8 PG (26-34); Mean Corpuscular Volume 83.6 fL (80-100); Monocytes Absolute Auto 500 /uL (0-900); Neutrophils Absolute Auto 5500 /uL (1500-7000); Neutrophils Percent Auto 54.8 % (50-75); Platelet Count 320 X10^3/uL (150-400); Red Blood Cell Count 4.84 X10^6/uL (4.0-5.2); Red Cell Distribution Width 12.6 % (11.6-14.8)
[2018-12-01] MEDS: SODIUM CHLORIDE 0.9% 1,000 ML 1000 ML IV (13:24)
[2018-12-01] MEDS: PROCHLORPERAZINE 10 MG/2 ML VIAL IV (13:24)
[2018-12-01] MEDS: KETOROLAC 60 MG/2 ML VIAL 30 MG IV (13:25)
[2018-12-01 13:36] LABS: Alanine Aminotransferase 34 IU/L (9-52); Albumin 4.4 g/dL (3.5-5.0); Albumin Globulin Ratio 1.5 (1.0-2.8); Alkaline Phosphatase 73 U/L (38-126); Aspartate Aminotransferase 31 IU/L (14-36); BUN Creatinine Ratio 24.3 (6-22); Bilirubin Total 0.2 mg/dL (0.2-1.3); Blood Urea Nitrogen 17 mg/dL (7-17); Calcium 9.3 mg/dL (8.4-10.2); Carbon Dioxide 23 mmol/L (22-32); Chloride 104 mmol/L (98-107); Estimated Glomerular Filt Rate > 60.0 mL/min (>60); Glucose 90 mg/dL (70-100); HEMOLYSIS < 15 (0-50); Lipase 85 U/L (23-300); Potassium 3.9 mmol/L (3.4-5.1); Sodium 137 mmol/L (137-145); Total Protein 7.4 g/dL (6.3-8.2)
[2018-12-01 13:47] VITALS: BP 121/99; PULSE 69; RESP 17; O2SAT 99
--- NOTE | 2018-12-01 14:46 | PC.NURSE ---
Gage at bedside prepping patient for discharge. Patient reports pain is much better and that the compazine helped with nausea as well.
[2018-12-01 14:48] VITALS: BP 141/72; PULSE 65; RESP 16; O2SAT 99
== END 2018-12-01 15:15 | disposition home or self-care (01) ==
PROVIDERS: Emergency Provider Internal Medicine; Family Provider Family Medicine; PCP Family Medicine
DX: N83.209 Unspecified ovarian cyst, unspecified side (principal)
CPT/HCPCS: 36591; 76830; 76856; 80053; 81003; 81025; 83690; 85025; 87210; 87220; 96361; 96374; 96376; 99284; J0780; J1885

== ENCOUNTER 2019-03-01 02:02 | Emergency (ER) | payer OTHER, SELFPAY ==
--- NOTE | 2019-03-01 02:04 | ED_ITS ---
HPI - Abdominal Pain General Chief Complaint: Abdominal Pain Stated Complaint: severe abdominal pain Time Seen by Provider: 03/01/19 02:03 Source: patient Mode of arrival: ambulatory Limitations: no limitations History of Present Illness HPI narrative: Patient is a 23-year-old female with a known history of endometr iosis and ovarian cyst. She has had her right ovary removed in the past. She states that for the past 3 days she has had right lower quadrant abdominal pain and fevers. Nausea and vomiting. No urinary symptoms. No bowel changes. Has not tried anything for symptoms prior to arrival. Patient states this pain is different from her normal pelvic pain. Related Data Home Medications Medication Instructions Recorded Confirmed meloxicam [Mobic] 7.5 mg PO AMCC #0 10/15/16 03/05/18 [BCP] 1 tab PO Q DAY #0 10/23/16 aspirin 325 mg PO DAILY 02/24/18 02/24/18 pawzvws-zioawejshavwm-okhwwiji 2 tab PO Q4-6H PRN 03/05/18 03/05/18 [Excedrin Extra Strength] Previous Rx's Medication Instructions Recorded ondansetron [Zofran ODT] 4 mg SUBLINGUAL Q6HP PRN #10 odt 08/07/16 ibuprofen 600 mg PO Q6HP PRN #60 tab 10/24/16 oxycodone-acetaminophen [Percocet] 1 tab PO Q4HP PRN #15 tab 10/24/16 ketorolac 10 mg PO Q6H PRN #14 tab 04/10/18 hydrocodone-acetaminophen [Vicodin] 1 tab PO Q6H PRN #2 tab 06/01/18 Allergies Allergy/AdvReac Type Severity Reaction Status Date / Time latex [LATEX] Allergy Mild RASH, Verified 03/05/18 08:07 ITCHING prochlorperazine Allergy Verified 03/01/19 02:14 [From Compazine] tramadol AdvReac Severe Chest Pain Verified 12/01/18 11:24 oxycodone AdvReac Intermediate Verified 12/01/18 11:24 Review of Systems Constitutional Reports fever(s) (Subjective) Cardiovascular Denies chest pain and Denies dyspnea Respiratory Denies dyspnea Gastrointestinal Gastrointestinal: Reports abdominal pain, Denies change in stool character, Reports nausea and Reports vomiting Genitourinary Denies dysuria and Denies vaginal discharge Musculoskeletal Denies myalgias and Denies arthralgias Integumentary/Breasts Denies rash Neurologic Denies behavioral changes Psychiatric Denies behavioral changes Hematologic/Lymphatic Denies easy bleeding and Denies easy bruising [facility] Medical History Ankle pain (Acute) Knee pain (Acute) Left ankle instability (Acute) Anxiety (Chronic) Constipation (Chronic) Depression (Chronic) Endometriosis (Chronic) History of headache (Chronic) PCOS (polycystic ovarian syndrome) (Chronic) Surgical History Deviated septum (Resolved) H/O laparoscopy (Resolved) History of mandibular surgery (Resolved) History of ovarian cystectomy (Resolved) S/P left knee arthroscopy (Resolved) S/P right knee arthroscopy (Resolved) Social History household members: spouse Smoking Status: Current every day smoker alcohol intake: current Social History household members: spouse Smoking Status: Current every day smoker alcohol intake: current Exam Initial Vital Signs Initial Vital Signs: Vital Signs Temperature 97.6 F 03/01/19 02:11 Pulse Rate 88 03/01/19 02:11 Respiratory Rate 20 03/01/19 02:11 Blood Pressure 128/80 03/01/19 02:11 Pulse Oximetry 99 03/01/19 02:11 Const General: cooperative, well developed, well groomed and No acute distress Orientation: alert, awake and oriented x3 HENMT Head: normal to inspection and normocephalic Resp Effort & Inspection: normal respiratory effort Auscultation: clear to auscultation bilaterally Cardio Rate: regular rate Rhythm: regular rhythm GI Inspection: non-distended Palpation: soft, No firm and tender (Right lower quadrant with guarding) Skin Lesions: no lesions Rashes: no rashes Neuro General: alert and awake Cognition: normal cognition Speech: speech normal Extrem General: normal to inspection and capillary refill normal Psych Appearance: grossly normal and well kempt Course Orders Ordered: ED Orders 03/01/19 02:14 CT abdomen pelvis w con Stat 03/01/19 02:25 Complete Blood Count AUTO DIFF Stat Comprehensive Metabolic Panel Stat Lipase Stat Discontinued Medications Hydromorphone HCl (Dilaudid) 0.5 mg IV NOW ONE Stop: 03/01/19 03:00 Last Admin: 03/01/19 03:07 Dose: 0.5 mg Sodium Chloride (Normal Saline 0.9%) 1,000 mls @ 1,000 mls/hr IV BOLUS ONE Stop: 03/01/19 03:12 Last Admin: 03/01/19 02:23 Dose: 1,000 mls/hr Ketorolac Tromethamine (Toradol) 30 mg IV NOW ONE Stop: 03/01/19 02:14 Last Admin: 03/01/19 02:23 Dose: 30 mg Ondansetron HCl (Zofran) 4 mg IV NOW ONE Stop: 03/01/19 03:12 Last Admin: 03/01/19 03:12 Dose: 4 mg Vital Signs - 8 hr 03/01/19 02:11 Temperature 97.6 F Pulse Rate 88 Respiratory Rate 20 Blood Pressure 128/80 Pulse Oximetry 99 MDM - Abdominal Pain Medical Records Attestation: I reviewed the patient's medical records. Lab Data Attestation: I reviewed the patient's lab results. Result diagrams: 03/01/19 02:25 03/01/19 02:25 Lab Results 03/01/19 03/01/19 03/01/19 Range/Units 02:25 02:25 02:25 WBC 11.1 H (4.5-11.0) X10^3/uL RBC 4.70 (4.0-5.2) X10^6/uL Hgb 13.6 (12.0-16.0) g/dL Hct 39.9 (36-46) % MCV 84.8 (80-100) fL MCH 28.8 (26-34) PG MCHC 34.0 (30-36) % RDW 13.2 (11.6-14.8) % Plt Count 371 (150-400) X10^3/uL Neut % (Auto) 58.1 (50-75) % Lymph % (Auto) 34.9 (25-40) % [place] % (Auto) 5.2 (3-14) % Eos % (Auto) 1.1 L (2-4) % Baso % (Auto) 0.7 (0-2) % Neut # (Auto) 6500 (0304-2359) /uL Lymph # (Auto) 3900 (9983-1057) /uL [place] # (Auto) 600 (0-900) /uL Eos # (Auto) 100 (0-450) /uL Baso # (Auto) 100 (0-100) /uL Sodium 139 (137-145) mmol/L Potassium 3.6 (3.4-5.1) mmol/L Chloride 105 (98-107) mmol/L Carbon Dioxide 24 (22-32) mmol/L BUN 13 (7-17) mg/dL Creatinine 0.80 (0.52-1.04) mg/dL Estimated GFR > 60.0 (>60) mL/min BUN/Creatinine Ratio 16.3 (6-22) Glucose 103 H (70-100) mg/dL Calcium 9.5 (8.4-10.2) mg/dL Total Bilirubin 0.2 (0.2-1.3) mg/dL AST 26 (14-36) IU/L ALT 23 (9-52) IU/L Alkaline Phosphatase 76 (38-126) U/L Total Protein 7.1 (6.3-8.2) g/dL Albumin 4.3 (3.5-5.0) g/dL Globulin 2.8 (1.7-4.1) g/dL Albumin/Globulin Ratio 1.5 (1.0-2.8) Lipase 97 (23-300) U/L Point of care testing: Point of Care Testing Test Results Negative Urine Dip Bedside Urine Glucose Negative Bedside Urine Bilirubin - Negative Bedside Urine Ketone +/- 5 Urine Specific [place] 1.030 Bedside Urine Occult Blood - Negative Bedside Urine pH 5.0 Bedside Urine Protein +/- 15 Bedside Urine Urobilinogen +/- 1mg Bedside Urine Nitrite - Negative Bedside Urine Leukocytes - Negative Esterase Imaging Data CT scan - abdomen: Radiologist's impression: Small complex left ovarian/paraovarian cyst versus endometrioma. MDM Narrative Medical decision making narrative: Labs unremarkable. CT scan shows left-sided ovarian cyst which the patient knows about. No surgical issue identified. No indication for antibiotics. No indication for surgical consultation. Suspect this is a flare of her endometriosis. She is scheduled for hysterectomy later this month. Informed her that she needed to talk with her primary doctor and her OB provider for long-term pain management. She was given return precautions and follow-up instructions. She expressed understanding and agreement with plan. Discharge Plan Departure Patient Disposition: Home Clinical Impression: Abdominal pain Qualifiers: Abdominal location: right lower quadrant Qualified Code(s): R10.31 - Right lower quadrant pain Instructions: DI for Abdominal Pain-Adult Activity Restrictions/Additional Instructions: You do need to talk with your primary provider and your qualitative field project manager provider for long- term pain management if this is needed. Call your primary care provider tomorrow. Return to the emergency department for any new symptoms. Prescriptions: No Action ondansetron [Zofran ODT] 4 MG tablet,disintegrating 4 mg Sublingual Q6HP PRNQty: 10 RF: 0 meloxicam [Mobic] 7.5 MG tablet 7.5 mg PO AMCC Qty: 0 RF: 0 [BCP] 1 tab PO Q DAY Qty: 0 RF: 0 oxycodone-acetaminophen [Percocet] 5 MG/325 MG tablet 1 tab PO Q4HP PRNQty: 15 RF: 0 ibuprofen 600 MG tablet 600 mg PO Q6HP PRNQty: 60 RF: 0 hydrocodone-acetaminophen [Vicodin] 5-300 mg tablet 1 tab PO Q6H PRN (Reason: pain) Qty: 2 RF: 0 aspirin 325 mg Tablet 325 mg PO DAILY RF: 0 oxmewij-vdsvpahlkmovp-srsxldmx [Excedrin Extra Strength] 250-250-65 mg Tablet 2 tab PO Q4-6H PRN (Reason: Pain, Moderate) RF: 0 ketorolac 10 mg tablet 10 mg PO Q6H PRN (Reason: pain) Qty: 14 RF: 0 Referrals: Zackery Keith MD [Primary Care Provider] -
[2019-03-01 02:11] VITALS: BP 128/80; PULSE 88; RESP 20; TEMP 36.4; O2SAT 99; BMI 34.0
--- NOTE | 2019-03-01 02:14 | DI.CT.S_ITS ---
PROCEDURE: CT ABDOMEN PELVIS W CON INDICATIONS: Right lower quadrant abdominal pain TECHNIQUE: After the administration of intravenous contrast, 5 mm thick sections acquired from the diaphragm to the symphysis. 5 mm coronal and sagittal reformats were acquired. For radiation dose reduction, the following was used: automated exposure control, adjustment of mA and/or kV according to patient size. COMPARISON: [facility], CT, ABDOMEN/PELVIS WITH CONTRAST, 10/15/2016, 12:01. FINDINGS: Image quality: Excellent. ABDOMEN: Lung bases: Lung bases are clear. Heart size is normal. Solid organs: Liver is normal in size and enhancement. Gallbladder is unremarkable. Biliary system is non dilated. Pancreas enhances normally. Spleen is normal in size and enhancement. No adrenal nodules. Kidneys demonstrate normal size and enhancement, without hydronephrosis. Peritoneum and bowel: Bowel loops demonstrate normal wall thickness and caliber. No free fluid or air. Normal appendix. Nodes and vessels: No retroperitoneal or mesenteric adenopathy by size criteria. Aorta and inferior vena cava are normal in size. Miscellaneous: Small fat-containing umbilical hernia without acute inflammation. PELVIS: Genitourinary: Bladder wall thickness is normal. There is a complex, septated cystic structure within the left ovary measuring 1.8 x 1.9 x 2.1 cm. Miscellaneous: No inguinal hernias or adenopathy. Bones: No suspicious bony lesions. No acute vertebral body compression fractures. IMPRESSION: 1. A 2.1 cm complex cystic lesion within the left ovary/adnexa likely representing a complicated cyst versus endometrioma. Consider short interval followup pelvic ultrasound to further characterize. 2. Normal appendix. Dictated by: Yamil Walker M.D. on 03/01/2019 at 7:42 Approved by: Yamil Walker M.D. on 03/01/2019 at 7:52
[2019-03-01] MEDS: KETOROLAC 60 MG/2 ML VIAL 30 MG IV (02:23)
[2019-03-01] MEDS: SODIUM CHLORIDE 0.9% 1,000 ML 1000 ML IV (02:23)
[2019-03-01 02:39] LABS: Add Manual Diff / Slide Review NO; Basophils Absolute Auto 100 /uL (0-100); Basophils Percent Auto 0.7 % (0-2); Eosinophils Absolute Auto 100 /uL (0-450); Eosinophils Percent Auto 1.1 % (2-4); Hematocrit 39.9 % (36-46); Hemoglobin 13.6 g/dL (12.0-16.0); Lymphocytes Absolute Auto 3900 /uL (1100-4500); Lymphocytes Percent Auto 34.9 % (25-40); Mean Corpuscular Hemoglobin 28.8 PG (26-34); Mean Corpuscular Volume 84.8 fL (80-100); Monocytes Absolute Auto 600 /uL (0-900); Monocytes Percent Auto 5.2 % (3-14); Neutrophils Absolute Auto 6500 /uL (1500-7000); Neutrophils Percent Auto 58.1 % (50-75); Platelet Count 371 X10^3/uL (150-400); Red Cell Distribution Width 13.2 % (11.6-14.8); White Blood Cell Count 11.1 X10^3/uL (4.5-11.0)
[2019-03-01 02:44] LABS: Lipase 97 U/L (23-300)
[2019-03-01 02:45] LABS: Alanine Aminotransferase 23 IU/L (9-52); Albumin 4.3 g/dL (3.5-5.0); Albumin Globulin Ratio 1.5 (1.0-2.8); Alkaline Phosphatase 76 U/L (38-126); Aspartate Aminotransferase 26 IU/L (14-36); BUN Creatinine Ratio 16.3 (6-22); Bilirubin Total 0.2 mg/dL (0.2-1.3); Blood Urea Nitrogen 13 mg/dL (7-17); Calcium 9.5 mg/dL (8.4-10.2); Carbon Dioxide 24 mmol/L (22-32); Chloride 105 mmol/L (98-107); Estimated Glomerular Filt Rate > 60.0 mL/min (>60); Globulin 2.8 g/dL (1.7-4.1); Glucose 103 mg/dL (70-100); HEMOLYSIS < 15 (0-50); Potassium 3.6 mmol/L (3.4-5.1); Sodium 139 mmol/L (137-145); Total Protein 7.1 g/dL (6.3-8.2)
[2019-03-01] MEDS: HYDROMORPHONE 1 MG INJ 0.5 MG IV (03:07)
[2019-03-01] MEDS: ONDANSETRON 4 MG/2 ML INJ IV (03:12)
[2019-03-01 03:39] VITALS: BP 127/81; PULSE 70; RESP 16; O2SAT 98
== END 2019-03-01 03:56 | disposition home or self-care (01) ==
PROVIDERS: Emergency Provider Emergency Medicine; Family Provider Family Medicine; PCP Family Medicine
DX: R10.31 Right lower quadrant pain (principal)
CPT/HCPCS: 36591; 74177; 80053; 81003; 81025; 83690; 85025; 96361; 96374; 96375; 99283; 99284; J1170; J1885; J2405; Q9967

== ENCOUNTER 2019-06-15 11:15 | Emergency (ER) | payer OTHER, SELFPAY ==
[2019-06-15 11:24] VITALS: BP 133/97; PULSE 75; RESP 18; TEMP 36.9; O2SAT 100; BMI 35.4
--- NOTE | 2019-06-15 11:34 | ED.ABDPAIN ---
HPI - Abdominal Pain General Chief Complaint: Urogenital-Female Stated Complaint: throwing up,faint,pelvic/vaginal pain Time Seen by Provider: 06/15/19 11:25 Source: patient Mode of arrival: Ambulatory History of Present Illness HPI narrative: Patient is a 24-year-old female with history of total hysterectomy 8 weeks ago for endometriosis and severe PCOS. Presenting today with sudden onset of lower abdominal pain all across her abdomen. She feels nauseous she has also had some lower back pain as well. She denies any vomiting or fevers. She has been doing well in till now. complaint: abdominal pain Onset (ago): hour(s) Pain Consistency: constant Location: diffuse Severity: moderate Quality: cramping Radiation: none Migration to: no migration Relieving factors: nothing Exacerbating factors: nothing Related Data Home Medications Medication Instructions Recorded Confirmed aspirin 325 mg PO DAILY 02/24/18 02/24/18 [id number] 2 tab PO Q4-6H PRN 03/05/18 03/05/18 [Excedrin Extra Strength] estradiol 0.05 mg TOPICAL 06/15/19 fluoxetine 20 mg PO DAILY 06/15/19 06/15/19 omeprazole 20 mg PO DAILY 06/15/19 06/15/19 scopolamine base [Transderm-Scop] 06/15/19 Allergies Allergy/AdvReac Type Severity Reaction Status Date / Time latex [LATEX] Allergy Mild RASH, Verified 03/05/18 08:07 ITCHING prochlorperazine Allergy Verified 03/01/19 02:14 [From Compazine] tramadol AdvReac Severe Chest Pain Verified 12/01/18 11:24 oxycodone AdvReac Intermediate Verified 12/01/18 11:24 Review of Systems Review of Systems Narrative: GENERAL: Denies chills, fatigue, malaise, fever, sweats, travel HEENT: Denies sinus pain, ear pain, sore throat, difficulty swallowing, neck pain RESPIRATORY: Denies dyspnea, cough, wheezing, hemoptysis, sputum. CARDIOVASCULAR: Denies chest pain, palpitations, orthopnea, edema GASTROINTESTINAL: See HPI : Denies dysuria, frequency, incontinence, hematuria, urinary retention, flank pain. MUSCULOSKELETAL: Denies weakness, joint pain, or bony pain SKIN: No rash, no erythema, no pruritus NEUROLOGIC: Denies weakness, dizziness, headache, numbness, change in speech, confusion PSYCHIATRIC: No concerning psychosocial issues. 12 point review of systems is negative except for those stated above and HPI [facility] Medical History Ankle pain (Acute) Anxiety (Chronic) Constipation (Chronic) Depression (Chronic) Endometriosis (Chronic) History of headache (Chronic) Knee pain (Acute) Left ankle instability (Acute) PCOS (polycystic ovarian syndrome) (Chronic) Surgical History Deviated septum (Resolved) H/O laparoscopy (Resolved) History of mandibular surgery (Resolved) History of ovarian cystectomy (Resolved) S/P left knee arthroscopy (Resolved) S/P right knee arthroscopy (Resolved) Social History household members: spouse Smoking Status: Current every day smoker alcohol intake: current Social History household members: spouse Smoking Status: Current every day smoker alcohol intake: current Exam Initial Vital Signs Initial Vital Signs: Vital Signs Temperature 98.5 F 06/15/19 11:24 Pulse Rate 75 06/15/19 11:24 Respiratory Rate 18 06/15/19 11:24 Blood Pressure 133/97 H 06/15/19 11:24 Pulse Oximetry 100 06/15/19 11:24 GENERAL: Well-appearing, well-nourished and in no acute distress. HEENT: Head atraumatic,EOMI, pupils reactive, face symmetric, moist mucous membranes CARDIOVASCULAR: Regular rate and rhythm without murmurs, rubs or gallops. RESPIRATORY: Breath sounds equal bilaterally, no wheezes rales or rhonchi. ABDOMEN: Soft, obese mild tenderness across lower abdomen no localization no guarding no rebound no CVA tenderness EXTREMITIES: Normal range of motion, no clubbing or edema. Neurovascularly intact NEUROLOGICAL: Alert and oriented x4.Normal gait and speech. SKIN: Warm, dry, no laceration, no petechiae, no rashes or lesions. Course Orders Ordered: ED Orders 06/15/19 12:00 Complete Blood Count AUTO DIFF Stat Comprehensive Metabolic Panel Stat Lipase Stat 06/15/19 12:49 CT abdomen pelvis w con Stat Discontinued Medications Ketorolac Tromethamine (Toradol) 30 mg IV NOW ONE Stop: 06/15/19 11:32 Last Admin: 06/15/19 12:05 Dose: 30 mg Documented by: ANGELIC Promethazine HCl (Phenergan) 25 mg PO NOW ONE Stop: 06/15/19 11:32 Last Admin: 06/15/19 11:53 Dose: 25 mg Documented by: SARAH Vital Signs Vital signs: Vital Signs - 8 hr 06/15/19 11:24 06/15/19 13:57 Temperature 98.5 F Pulse Rate 75 47 L Respiratory Rate 18 14 Blood Pressure 133/97 H Blood Pressure [Right Arm] 116/93 H Pulse Oximetry 100 98 MDM - Abdominal Pain Lab Data Attestation: I reviewed the patient's lab results. Result diagrams: 06/15/19 12:00 06/15/19 12:00 Labs: Lab Results 06/15/19 06/15/19 Range/Units 12:00 12:00 WBC 7.3 (4.5-11.0) X10^3/uL RBC 4.84 (4.0-5.2) X10^6/uL Hgb 13.8 (12.0-16.0) g/dL Hct 40.9 (36-46) % MCV 84.6 (80-100) fL MCH 28.5 (26-34) PG MCHC 33.8 (30-36) % RDW 12.6 (11.6-14.8) % Plt Count 360 (150-400) X10^3/uL Neut % (Auto) 44.9 L (50-75) % Lymph % (Auto) 44.2 H (25-40) % [place] % (Auto) 7.0 (3-14) % Eos % (Auto) 3.0 (2-4) % Baso % (Auto) 0.9 (0-2) % Neut # (Auto) 3300 (8041-2352) /uL Lymph # (Auto) 3200 (4911-3132) /uL Avery # (Auto) 500 (0-900) /uL Eos # (Auto) 200 (0-450) /uL Baso # (Auto) 100 (0-100) /uL Sodium 139 (137-145) mmol/L Potassium 3.6 (3.4-5.1) mmol/L Chloride 103 (98-107) mmol/L Carbon Dioxide 23 (22-32) mmol/L BUN 13 (7-17) mg/dL Creatinine 0.60 (0.52-1.04) mg/dL Estimated GFR > 60.0 (>60) mL/min BUN/Creatinine Ratio 21.7 (6-22) Glucose 97 (70-100) mg/dL Calcium 9.9 (8.4-10.2) mg/dL Total Bilirubin 0.4 (0.2-1.3) mg/dL AST 54 H (14-36) IU/L ALT 55 H (9-52) IU/L Alkaline Phosphatase 89 (38-126) U/L Total Protein 7.6 (6.3-8.2) g/dL Albumin 4.6 (3.5-5.0) g/dL Globulin 3.0 (1.7-4.1) g/dL Albumin/Globulin Ratio 1.5 (1.0-2.8) Lipase 78 (23-300) U/L Point of care testing: Urine Dip Bedside Urine Glucose Negative Bedside Urine Bilirubin - Negative Bedside Urine Ketone - Negative Urine Specific [place] 1.015 Bedside Urine pH 6.0 Bedside Urine Protein - Negative Bedside Urine Urobilinogen - Negative Bedside Urine Nitrite - Negative Bedside Urine Leukocytes - Negative Esterase Imaging Data CT scan - abdomen: Radiologist's impression: PROCEDURE: CT ABDOMEN PELVIS W CON INDICATIONS: lower ab pain hx hysterectomy TECHNIQUE: After the administration of intravenous contrast, 5 mm thick sections acquired from the diaphragm to the symphysis. 5 mm coronal and sagittal reformats were acquired. For radiation dose reduction, the following was used: automated exposure control, adjustment of mA and/or kV according to patient size. COMPARISON: [facility], CT, ABDOMEN/PELVIS WITH CONTRAST, 10/15/2016, 12:01. [facility], CT, CT ABDOMEN PELVIS W CON, 03/01/2019, 2:46. FINDINGS: Image quality: Excellent. ABDOMEN: Lung bases: Lung bases are clear. Heart size is normal. Solid organs: Liver is normal in size and enhancement. Mild hepatic fatty infiltration. Gallbladder is normal. Biliary system is non dilated. Pancreas enhances normally. Spleen is normal in size and enhancement. No adrenal nodules. Kidneys demonstrate normal size and enhancement, without hydronephrosis. Peritoneum and bowel: There is a moderate amount stool in colon. A short segment of distal sigmoid colon appears slightly narrowed, most likely caused by artifact from peristalsis. Bowel loops demonstrate normal caliber. Normal appendix. No free fluid or air. Nodes and vessels: No retroperitoneal or mesenteric adenopathy by size criteria. Aorta and inferior vena cava are normal in size. Miscellaneous: No ventral hernias. PELVIS: Genitourinary: Bladder wall thickness is normal. Uterus and ovaries are not visualized, consistent with a hysterectomy and oophorectomies. No free fluid in pelvis. Miscellaneous: No inguinal hernias or adenopathy. Bones: No suspicious bony lesions. No vertebral body compression fractures. IMPRESSION: 1. No acute intra-abdominal/pelvic process. A short segment of mild narrowing in the distal sigmoid colon is most likely caused by artifact from peristalsis. 2. Hysterectomy and oophorectomies. 3. Normal appendix. Dictated by: Mariya Jacobs M.D. on 06/15/2019 at 12:49 MDM Narrative Medical decision making narrative: The patient's pain is overall better. Abdominal CT shows maybe some peristalsis blood work overall reassuring. At this time no further testing indicated. Recommend follow-up with PCP. Discharge Plan Departure Patient Disposition: Home Clinical Impression: Abdominal pain Qualifiers: Abdominal location: lower abdomen, unspecified Qualified Code(s): R10.30 - Lower abdominal pain, unspecified Discharge Date/Time: 06/15/19 14:08 Instructions: DI for Abdominal Pain-Adult Activity Restrictions/Additional Instructions: *You have been diagnosed with abdominal pain *What to do: At this time blood work and CT scan are within normal limits. *Continue to take medications as directed *Follow up with your primary care provider in 2-3 days *Return to ER if you should have increasing abdominal pain persistent vomiting inability tolerate fluids or any new, worsening or concerning symptoms Prescriptions: No Action aspirin 325 mg Tablet 325 mg PO DAILY RF: 0 [id number] [Excedrin Extra Strength] 250-250-65 mg Tablet 2 tab PO Q4-6H PRN (Reason: Pain, Moderate) RF: 0 estradiol 0.05 mg/24 hr patch semiweekly 0.05 mg topical RF: 0 omeprazole 20 mg capsule,delayed release(DR/EC) 20 mg PO DAILY RF: 0 scopolamine base [Transderm-Scop] 1 mg over 3 days patch 3 day RF: 0 fluoxetine 20 mg capsule 20 mg PO DAILY RF: 0 Referrals: Zackery Keith MD [Primary Care Provider] - Stand Alone Forms: Work Release Note
[2019-06-15] MEDS: PROMETHAZINE 25 MG TABLET PO (11:53)
[2019-06-15] MEDS: KETOROLAC 60 MG/2 ML VIAL 30 MG IV (12:05)
[2019-06-15 12:13] LABS: Add Manual Diff / Slide Review NO; Basophils Absolute Auto 100 /uL (0-100); Basophils Percent Auto 0.9 % (0-2); Eosinophils Absolute Auto 200 /uL (0-450); Hematocrit 40.9 % (36-46); Hemoglobin 13.8 g/dL (12.0-16.0); Lymphocytes Absolute Auto 3200 /uL (1100-4500); Lymphocytes Percent Auto 44.2 % (25-40); Mean Corpuscular HGB Conc 33.8 % (30-36); Mean Corpuscular Hemoglobin 28.5 PG (26-34); Mean Corpuscular Volume 84.6 fL (80-100); Monocytes Absolute Auto 500 /uL (0-900); Neutrophils Absolute Auto 3300 /uL (1500-7000); Neutrophils Percent Auto 44.9 % (50-75); Platelet Count 360 X10^3/uL (150-400); Red Blood Cell Count 4.84 X10^6/uL (4.0-5.2); Red Cell Distribution Width 12.6 % (11.6-14.8); White Blood Cell Count 7.3 X10^3/uL (4.5-11.0)
[2019-06-15 12:22] LABS: Alanine Aminotransferase 55 IU/L (9-52); Albumin 4.6 g/dL (3.5-5.0); Albumin Globulin Ratio 1.5 (1.0-2.8); Alkaline Phosphatase 89 U/L (38-126); Aspartate Aminotransferase 54 IU/L (14-36); BUN Creatinine Ratio 21.7 (6-22); Bilirubin Total 0.4 mg/dL (0.2-1.3); Blood Urea Nitrogen 13 mg/dL (7-17); Calcium 9.9 mg/dL (8.4-10.2); Carbon Dioxide 23 mmol/L (22-32); Chloride 103 mmol/L (98-107); Estimated Glomerular Filt Rate > 60.0 mL/min (>60); Glucose 97 mg/dL (70-100); HEMOLYSIS < 15 (0-50); Lipase 78 U/L (23-300); Potassium 3.6 mmol/L (3.4-5.1); Sodium 139 mmol/L (137-145); Total Protein 7.6 g/dL (6.3-8.2)
--- NOTE | 2019-06-15 12:49 | DI.CT.S_ITS ---
PROCEDURE: CT ABDOMEN PELVIS W CON INDICATIONS: lower ab pain hx hysterectomy TECHNIQUE: After the administration of intravenous contrast, 5 mm thick sections acquired from the diaphragm to the symphysis. 5 mm coronal and sagittal reformats were acquired. For radiation dose reduction, the following was used: automated exposure control, adjustment of mA and/or kV according to patient size. COMPARISON: [facility], CT, ABDOMEN/PELVIS WITH CONTRAST, 10/15/2016, 12:01. [facility], CT, CT ABDOMEN PELVIS W CON, 03/01/2019, 2:46. FINDINGS: Image quality: Excellent. ABDOMEN: Lung bases: Lung bases are clear. Heart size is normal. Solid organs: Liver is normal in size and enhancement. Mild hepatic fatty infiltration. Gallbladder is normal. Biliary system is non dilated. Pancreas enhances normally. Spleen is normal in size and enhancement. No adrenal nodules. Kidneys demonstrate normal size and enhancement, without hydronephrosis. Peritoneum and bowel: There is a moderate amount stool in colon. A short segment of distal sigmoid colon appears slightly narrowed, most likely caused by artifact from peristalsis. Bowel loops demonstrate normal caliber. Normal appendix. No free fluid or air. Nodes and vessels: No retroperitoneal or mesenteric adenopathy by size criteria. Aorta and inferior vena cava are normal in size. Miscellaneous: No ventral hernias. PELVIS: Genitourinary: Bladder wall thickness is normal. Uterus and ovaries are not visualized, consistent with a hysterectomy and oophorectomies. No free fluid in pelvis. Miscellaneous: No inguinal hernias or adenopathy. Bones: No suspicious bony lesions. No vertebral body compression fractures. IMPRESSION: 1. No acute intra-abdominal/pelvic process. A short segment of mild narrowing in the distal sigmoid colon is most likely caused by artifact from peristalsis. 2. Hysterectomy and oophorectomies. 3. Normal appendix. Dictated by: Mariya Jacobs M.D. on 06/15/2019 at 12:49 Approved by: Mariya Jacobs M.D. on 06/15/2019 at 13:12
[2019-06-15 13:57] VITALS: BP 116/93; PULSE 47; RESP 14; O2SAT 98
== END 2019-06-15 14:08 | disposition home or self-care (01) ==
PROVIDERS: Emergency Provider Emergency Medicine; Family Provider Family Medicine; PCP Family Medicine
DX: R10.30 Lower abdominal pain, unspecified (principal)
CPT/HCPCS: 36415; 74177; 80053; 81003; 83690; 85025; 96374; 99283; 99285; J1885; Q9967